=== PATIENT | female | born 1930 | race Caucasian/White ===

== ENCOUNTER 2016-06-08 16:11 | Observation (INO) | payer MEDICARE ==
[2016-06-08] MEDS ORDERED: SODIUM CHLORIDE 0.9% 1,000 ML IV STA (16:40)
--- NOTE | 2016-06-08 17:00 | ED ---
General Adult HPI - General Chief complaint: Altered Mental Status Stated complaint: Confusion/Weakness Time Seen by Provider: 06/08/16 16:40 Source: patient, RN notes reviewed, old records reviewed Mode of arrival: wheelchair Limitations: no limitations - History of Present Illness Initial comments: This is a 6-year-old female here for altered mental status. Patient brought in by family for evaluation of not acting appropriately. Patient's no significant medical changes no significant medication changes no other medical problems. Patient herself denies any complaints. Patient has history of COPD and diabetes , high cholesterol. Patient denies chest patient was of breath or headache. The patient's family brings patient in because she is asking about people who are no longer alive and doing some things that she doesn't normally do. - Related Data Home Medications Medication Instructions Recorded Confirmed LORazepam [Lorazepam] 0.5 mg PO BID PRN 01/01/16 06/08/16 Rosuvastatin [Crestor] 10 mg PO HS 01/01/16 06/08/16 glipiZIDE [Glipizide Xl] 2.5 mg PO DAILY 01/01/16 06/08/16 Venlafaxine HCl [Effexor XR] 225 mg PO DAILY 06/08/16 06/08/16 sitaGLIPtin [Januvia] 100 mg PO DAILY 06/08/16 06/08/16 Allergies Allergy/AdvReac Type Severity Reaction Status Date / Time No Known Allergies Allergy Verified 06/08/16 17:27 Review of Systems ROS Statement: Those systems with pertinent positive or pertinent negative responses have been documented in the HPI. ROS Other: All systems not noted in ROS Statement are negative. Past Medical History Past Medical History: COPD, Diabetes Mellitus, Hyperlipidemia History of Any Multi-Drug Resistant Organisms: None Reported Past Surgical History: Adenoidectomy, Tonsillectomy Past Psychological History: No Psychological Hx Reported Smoking Status: Current every day smoker Past Alcohol Use History: None Reported Past Drug Use History: None Reported General Exam Limitations: no limitations General appearance: alert, in no apparent distress Head exam: Present: atraumatic, normocephalic, normal inspection Eye exam: Present: normal appearance, PERRL, EOMI. Absent: scleral icterus, conjunctival injection, periorbital swelling ENT exam: Present: normal exam, mucous membranes moist Neck exam: Present: normal inspection. Absent: tenderness, meningismus, lymphadenopathy Respiratory exam: Present: normal lung sounds bilaterally. Absent: respiratory distress, wheezes, rales, rhonchi, stridor Cardiovascular Exam: Present: regular rate, normal rhythm, normal heart sounds. Absent: systolic murmur, diastolic murmur, rubs, gallop, clicks GI/Abdominal exam: Present: soft, normal bowel sounds. Absent: distended, tenderness, guarding, rebound, rigid Extremities exam: Present: normal inspection, full ROM, normal capillary refill. Absent: tenderness, pedal edema, joint swelling, calf tenderness Back exam: Present: normal inspection Neurological exam: Present: alert, oriented X3, CN II-XII intact Psychiatric exam: Present: normal affect, normal mood Skin exam: Present: warm, dry, intact, normal color. Absent: rash Course Vital Signs 06/08/16 06/08/16 16:42 18:48 Temperature 97.0 F L 99.0 F Pulse Rate 106 H 100 Respiratory 18 18 Rate Blood Pressure 152/82 178/79 O2 Sat by Pulse 98 100 Oximetry EKG Findings - EKG Comments: EKG Findings:: EKG shows sinus tachycardia rate of 106, LA 170, QRS 80, QTC 470 Medical Decision Making - Medical Decision Making 86-year-old female ER with altered mental status, no neurologic deficit, patient still saying inappropriate comments to family. Patient will be admitted for altered mental status and neurological evaluation - Lab Data Result diagrams: 06/08/16 16:50 06/08/16 16:50 Lab Results 06/08/16 06/08/16 06/08/16 Range/Units 16:50 16:50 16:50 WBC 7.7 (3.8-10.6) k/uL RBC 4.39 (3.80-5.40) m/uL Hgb 14.2 (11.4-16.0) gm/dL Hct 41.6 (34.0-46.0) % MCV 94.9 (80.0-100.0) fL MCH 32.3 (25.0-35.0) pg MCHC 34.0 (31.0-37.0) g/dL RDW 13.1 (11.5-15.5) % Plt Count 162 (150-450) k/uL Neutrophils % 86 % Lymphocytes % 9 % Monocytes % 3 % Eosinophils % 0 % Basophils % 0 % Neutrophils # 6.6 (1.3-7.7) k/uL Lymphocytes # 0.7 L (1.0-4.8) k/uL Monocytes # 0.3 (0-1.0) k/uL Eosinophils # 0.0 (0-0.7) k/uL Basophils # 0.0 (0-0.2) k/uL PT (9.0-12.0) sec INR (<1.1) APTT (22.0-30.0) sec Sodium 136 L (137-145) mmol/L Potassium 4.2 (3.5-5.1) mmol/L Chloride 101 (98-107) mmol/L Carbon Dioxide 23 (22-30) mmol/L Anion Gap 12 mmol/L BUN 19 H (7-17) mg/dL Creatinine 0.94 (0.52-1.04) mg/dL Est GFR (MDRD) Af Amer >60 (>60 ml/min/1.73 sqM) Est GFR (MDRD) Non-Af 56 (>60 ml/min/1.73 sqM) Glucose 236 H (74-99) mg/dL Calcium 9.0 (8.4-10.2) mg/dL Phosphorus 3.2 (2.5-4.5) mg/dL Magnesium 2.0 (1.6-2.3) mg/dL Total Bilirubin 0.7 (0.2-1.3) mg/dL AST 31 (14-36) U/L ALT 24 (9-52) U/L Alkaline Phosphatase 70 (38-126) U/L Total Creatine Kinase 76 (30-135) U/L CK-MB (CK-2) 1.3 (0.0-2.4) ng/mL CK-MB (CK-2) Rel Index 1.7 Troponin I <0.012 (0.000-0.034) ng/mL Total Protein 7.5 (6.3-8.2) g/dL Albumin 4.5 (3.5-5.0) g/dL Urine Color Urine Appearance (Clear) Urine pH (5.0-8.0) Ur Specific [place] (1.001-1.035) Urine Protein (Negative) Urine Glucose (UA) (Negative) Urine Ketones (Negative) Urine Blood (Negative) Urine Nitrite (Negative) Urine Bilirubin (Negative) Urine Urobilinogen (<2.0) mg/dL Ur Leukocyte Esterase (Negative) 06/08/16 06/08/16 Range/Units 16:50 17:35 WBC (3.8-10.6) k/uL RBC (3.80-5.40) m/uL Hgb (11.4-16.0) gm/dL Hct (34.0-46.0) % MCV (80.0-100.0) fL MCH (25.0-35.0) pg MCHC (31.0-37.0) g/dL RDW (11.5-15.5) % Plt Count (150-450) k/uL Neutrophils % % Lymphocytes % % Monocytes % % Eosinophils % % Basophils % % Neutrophils # (1.3-7.7) k/uL Lymphocytes # (1.0-4.8) k/uL Monocytes # (0-1.0) k/uL Eosinophils # (0-0.7) k/uL Basophils # (0-0.2) k/uL PT 11.2 (9.0-12.0) sec INR 1.1 (<1.1) APTT 23.7 (22.0-30.0) sec Sodium (137-145) mmol/L Potassium (3.5-5.1) mmol/L Chloride (98-107) mmol/L Carbon Dioxide (22-30) mmol/L Anion Gap mmol/L BUN (7-17) mg/dL Creatinine (0.52-1.04) mg/dL Est GFR (MDRD) Af Amer (>60 ml/min/1.73 sqM) Est GFR (MDRD) Non-Af (>60 ml/min/1.73 sqM) Glucose (74-99) mg/dL Calcium (8.4-10.2) mg/dL Phosphorus (2.5-4.5) mg/dL Magnesium (1.6-2.3) mg/dL Total Bilirubin (0.2-1.3) mg/dL AST (14-36) U/L ALT (9-52) U/L Alkaline Phosphatase (38-126) U/L Total Creatine Kinase (30-135) U/L CK-MB (CK-2) (0.0-2.4) ng/mL CK-MB (CK-2) Rel Index Troponin I (0.000-0.034) ng/mL Total Protein (6.3-8.2) g/dL Albumin (3.5-5.0) g/dL Urine Color Yellow Urine Appearance Clear (Clear) Urine pH 6.5 (5.0-8.0) Ur Specific [place] 1.017 (1.001-1.035) Urine Protein Negative (Negative) Urine Glucose (UA) Trace H (Negative) Urine Ketones Negative (Negative) Urine Blood Negative (Negative) Urine Nitrite Negative (Negative) Urine Bilirubin Negative (Negative) Urine Urobilinogen <2.0 (<2.0) mg/dL Ur Leukocyte Esterase Negative (Negative) Disposition Clinical Impression: Altered mental status, CVA (cerebral vascular accident) Disposition: [facility] Condition: Fair Referrals: Elena Pena MD [Primary Care Provider] - 1-2 days
[2016-06-08 17:04] LABS: Basophils % (A) 0 %; CH 32.6; CHCM 34.5; Eosinophils % (A) 0 %; HCT 41.6 % (34.0-46.0); HDW 2.73; HGB 14.2 gm/dL (11.4-16.0); Luc # (Auto) 0.13; Luc % (Auto) 2; Lymphocytes # (A) 0.7 k/uL (1.0-4.8); Lymphocytes % (A) 9 %; MCH 32.3 pg (25.0-35.0); MCV 94.9 fL (80.0-100.0); Mean Platelet Volume 8.2; Monocytes # (A) 0.3 k/uL (0-1.0); Monocytes % (A) 3 %; Neutrophils # (A) 6.6 k/uL (1.3-7.7); Neutrophils % (A) 86 %; RBC 4.39 m/uL (3.80-5.40); RDW 13.1 % (11.5-15.5); WBC 7.7 k/uL (3.8-10.6); WBC (Perox) 7.86
[2016-06-08 17:12] LABS: INR 1.1 (<1.1); Partial Thromboplastin Time 23.7 sec (22.0-30.0); Prothrombin Time 11.2 sec (9.0-12.0)
[2016-06-08 17:15] LABS: ALT 24 U/L (9-52); AST 31 U/L (14-36); Alkaline Phosphatase 70 U/L (38-126); Anion Gap 12 mmol/L; Blood Urea Nitrogen 19 mg/dL (7-17); Carbon Dioxide 23 mmol/L (22-30); Chloride 101 mmol/L (98-107); Glucose 236 mg/dL (74-99); Non-African American GFR(MDRD) 56 (>60 ml/min/1.73 sqM); Phosphorous 3.2 mg/dL (2.5-4.5); Potassium 4.2 mmol/L (3.5-5.1); Sodium 136 mmol/L (137-145); Total Bilirubin 0.7 mg/dL (0.2-1.3); Total Protein 7.5 g/dL (6.3-8.2)
[2016-06-08 17:23] LABS: Creatine Kinase 76 U/L (30-135)
[2016-06-08 17:36] LABS: Creatine Kinase MB 1.3 ng/mL (0.0-2.4); Troponin I <0.012 ng/mL (0.000-0.034)
[2016-06-08 17:46] LABS: Appearance,Urine Clear (Clear); Bilirubin,Urine Negative (Negative); Glucose,Urine (UA) Trace (Negative); Ketones,Urine Negative (Negative); Leukocyte Esterase,Urine Negative (Negative); Nitrite,Urine Negative (Negative); PH, Urine 6.5 (5.0-8.0); Protein,Urine Negative (Negative); Specific Gravity,Urine 1.017 (1.001-1.035); UA Billing (MACRO vs. MICRO) CHEM; Urobilinogen,Urine <2.0 mg/dL (<2.0)
--- NOTE | 2016-06-08 18:21 | CT ---
EXAMINATION TYPE: CT brain wo con DATE OF EXAM: 06/08/2016 6:16 PM COMPARISON: 01/01/2016 HISTORY: Pts family states of confusion today. CT DLP: 974.7 mGycm Automated exposure control for dose reduction was used. FINDINGS: There is cerebral cortical atrophy. There is no mass effect nor midline shift. There is no evidence o f intracranial hemorrhage. There is mild hypodensity around the frontal horns of the lateral ventricl es. Calvarium is intact. IMPRESSION: No acute intracranial abnormality. Cerebral atrophy and mild chronic small vessel ischemia.
[2016-06-08] MEDS ORDERED: ASPIRIN 325 MG TAB PO STA (18:48)
--- NOTE | 2016-06-08 19:13 | XR ---
EXAMINATION TYPE: XR chest 1V DATE OF EXAM: 06/08/2016 7:04 PM COMPARISON: 01/01/2016 HISTORY: Confusion COPD. TECHNIQUE: Single frontal view of the chest is obtained. FINDINGS: There is no heart failure nor confluent pneumonic infiltrate. Thoracic aorta is atheromato us. There are no hilar masses. Costophrenic angles are clear. There are chest leads. IMPRESSION: No active cardiopulmonary disease. No change.
[2016-06-08 19:53] LABS: Glucose,Whole Blood 194 mg/dL (75-99)
[2016-06-08] MEDS: SODIUM CHLORIDE 0.9% 1,000 ML IV SCH (20:47)
[2016-06-08] MEDS: ATORVASTATIN 20 MG TAB PO SCH (21:38)
[2016-06-08] MEDS: LORazepam 0.5 MG TAB PO PRN (21:38)
[2016-06-09] MEDS: SODIUM CHLORIDE 0.9% 1,000 ML IV SCH (04:53)
[2016-06-09 06:28] LABS: Glucose,Whole Blood 139 mg/dL (75-99)
[2016-06-09] MEDS: VENLAFAXINE HCL ER 75 MG CAP PO SCH (07:53)
[2016-06-09] MEDS: ASPIRIN 325 MG TAB PO SCH (07:54)
[2016-06-09] MEDS: LINAGLIPTIN 5 MG TABLET PO SCH (07:54)
[2016-06-09 11:33] LABS: Glucose,Whole Blood 111 mg/dL (75-99)
--- NOTE | 2016-06-09 12:20 | P.HPIM ---
History of Present Illness H&P Date: 06/09/16 Chief Complaint: Altered level of consciousness/TIA This is an 86-year-old female one of Dr. España with a previous medical history significant for diabetes mellitus type 2, hyperlipidemia, depressive disorder, anxiety disorder, chronic tobacco use and dependence, patient was brought into the emergency department at [facility] yesterday because of change in her mentation according to her family and not able to contract right as a matter fact she was looking for her at the home, patient was seen in the ER had a chest x-ray that was negative ended up going for a computed tomography scan of the brain that was negative for acute infarct or bleed, patient had the flu swab that was negative as well as her EKG showed sinus rhythm with PACs with the chronic ischemic changes in the anterolateral lead patient was admitted to hospital for evaluation she was given aspirin 325 mg orally once every day, and she was placed on a monitor neurology consultation was obtained ultrasound of the carotid as well as echo care gram was obtained also we obtain cardiology consultation for evaluation of possible CAD. Review of Systems Constitutional: Denies chills, Denies chronic headaches, Denies weakness, Denies weight gain, Denies weight loss Eyes: denies blurred vision Ears: deny: decreased hearing Ears, nose, mouth and throat: Denies dental pain, Denies dysphagia, Denies neck lump, Denies sore throat, Denies vertigo Cardiovascular: Reports decreased exercise tolerance, Reports dyspnea on exertion, Denies chest pain, Denies high blood pressure, Denies irregular heart beat, Denies phlebitis, Denies rapid heart beat, Denies shortness of breath, Denies syncope Respiratory: Denies congestion, Denies cough, Denies cough with sputum, Denies home oxygen, Denies sleep apnea, Denies snoring, Denies wheezing Gastrointestinal: Denies abdominal pain, Denies bloating, Denies BRBPR, Denies heartburn, Denies hematemesis, Denies melena, Denies nausea, Denies vomiting Genitourinary: Denies dysuria, Denies hematuria Menstruation: Reports postmenopausal Musculoskeletal: Denies frequent falls, Denies low back pain Musculoskeletal: absent: ankle pain, ankle stiffness, ankle swelling, elbow pain , elbow stiffness, elbow swelling, foot pain, foot stiffness, foot swelling, hand pain, hand stiffness, hand swelling, hip pain, hip stiffness, hip swelling , knee pain, knee stiffness, knee swelling, shoulder pain, shoulder stiffness, shoulder swelling, wrist pain, wrist stiffness, wrist swelling Integumentary: Denies pruritus, Denies rash Neurological: Reports memory loss, Denies gait dysfunction, Denies head injury, Denies headaches, Denies hearing difficulties, Denies numbness, Denies paralysis , Denies paresthesias, Denies spasticity, Denies syncope, Denies tingling, Denies tremors, Denies vertigo, Denies weakness Psychiatric: Reports anxiety, Reports depression, Reports memory loss, Denies sleep disturbances, Denies suicidal ideation Endocrine: Denies fatigue, Denies weight change Past Medical History Past Medical History: COPD, Diabetes Mellitus, Hyperlipidemia, Osteoarthritis ( OA), Pneumonia Additional Past Medical History / Comment(s): OCC STRESS INCONT OF URINE, " HEART BURN" History of Any Multi-Drug Resistant Organisms: None Reported Past Surgical History: Adenoidectomy, Joint Replacement (Right total knee arthroplasty), Tonsillectomy Additional Past Surgical History / Comment(s): RT KNEE REPLACMENT Past Anesthesia/Blood Transfusion Reactions: No Reported Reaction Past Psychological History: No Psychological Hx Reported Additional Psychological History / Comment(s): PT IS A . SON NICOLAS LIVES WITH PT IN A RANCH STYLE HOME-HAS A RAMP(THAT [employer] USED). PT NEVER DROVE- FAMILY TAKES HER PLACES. USES A WALKER WHEN NEEDED. ALSO HAS A SHOWER CHAIR. Smoking Status: Current every day smoker Past Alcohol Use History: Occasional Additional Past Alcohol Use History / Comment(s): STARTED SMOKING AT AGE 16 SMOKES 1/2 PPD. Past Drug Use History: None Reported - Past Family History Mother Family Medical History: Coronary Artery Disease (CAD), Diabetes Mellitus ( Mother at age of 88 from diabetes and CAD.) Additional Family Medical History / Comment(s): PT'S MOM AND 2 AUNTS LIVED TO BE 96 Father Family Medical History: Unable to Obtain (Father at age of) Brother(s) Family Medical History: No Reported History (Patient has 4 brothers no major medical problems) Sister(s) Family Medical History: No Reported History (Patient has 2 sisters no major medical problems) Son(s) Family Medical History: No Reported History (Patient has 3 sons no major medical problems) Medications and Allergies Home Medications Medication Instructions Recorded Confirmed Type LORazepam [Lorazepam] 0.5 mg PO BID PRN 01/01/16 06/08/16 History Rosuvastatin [Crestor] 10 mg PO HS 01/01/16 06/08/16 History glipiZIDE [Glipizide Xl] 2.5 mg PO DAILY 01/01/16 06/08/16 History Venlafaxine HCl [Effexor XR] 225 mg PO DAILY 06/08/16 06/08/16 History sitaGLIPtin [Januvia] 100 mg PO DAILY 06/08/16 06/08/16 History Allergies Allergy/AdvReac Type Severity Reaction Status Date / Time No Known Allergies Allergy Verified 06/08/16 17:27 Physical Exam Vitals: Vital Signs Temp Pulse Pulse Pulse Resp BP BP 06/09/16 08:00 97.0 F L 75 16 123/85 06/09/16 07:01 66 122/58 06/09/16 05:01 66 18 127/58 06/09/16 04:00 69 18 06/09/16 03:01 98.3 F 69 18 121/76 06/09/16 01:01 89 129/66 06/09/16 00:00 80 18 06/08/16 23:01 99.1 F 112 H 18 194/85 06/08/16 21:17 102 H 18 06/08/16 21:01 112 H 18 194/85 06/08/16 20:00 98.6 F 102 H 18 168/74 06/08/16 19:41 69 16 151/84 Pulse Ox 06/09/16 08:00 98 06/09/16 07:01 99 06/09/16 05:01 97 06/09/16 04:00 06/09/16 03:01 95 06/09/16 01:01 06/09/16 00:00 06/08/16 23:01 95 06/08/16 21:17 06/08/16 21:01 95 06/08/16 20:00 100 06/08/16 19:41 98 Intake and Output 06/08/16 06/09/16 06/09/16 22:59 06:59 14:59 Intake Total 1000 Balance 1000 Intake: IV 1000 Sodium Chloride 0.9% 1, 1000 000 ml @ 100 mls/hr IV . Q10H HEMALATHA Rx#:[id number] Other: # Voids 1 1 Weight 64.6 kg - Constitutional General appearance: average body habitus, no acute distress - EENT Eyes: anicteric sclerae, EOMI, PERRLA, no ptosis, no scleral icterus, normal appearance ENT: NA/AT, normal oropharynx, no thrush Ears: bilateral: normal - Neck Neck: no lymphadenopathy, normal ROM, no rigidity, no stridor, no thyromegaly Carotids: bilateral: upstroke delayed Thyroid: bilateral: normal size - Respiratory Respiratory: bilateral: diminished, negative: dullness, rales, rhonchi, wheezing , prolonged expiration, prolonged inspiration - Cardiovascular Rhythm: regular Heart sounds: normal: S1, S2 Abnormal Heart Sounds: systolic murmur - Gastrointestinal General gastrointestinal: normal bowel sounds, soft, no splenomegaly, no tenderness, no umbilical hernia, no ventral hernia - Integumentary Integumentary: normal, normal turgor - Neurologic Neurologic: CNII-XII intact - Musculoskeletal Musculoskeletal: gait normal, strength equal bilaterally - Psychiatric Psychiatric: A&O x's 3, no appropriate affect, intact judgment & insight Results CBC & Chem 7: 06/10/16 05:56 06/10/16 05:56 Labs: Abnormal Lab Results - Last 24 Hours (Table) 06/08/16 06/09/16 Range/Units 19:51 06:27 POC Glucose (mg/dL) 194 H 139 H (75-99) mg/dL Thrombosis Risk Factor Assmnt - DVT/VTE Prophylaxis DVT/VTE Prophylaxis: Pharmacologic Prophylaxis ordered, Mechanical Prophylaxis ordered Assessment and Plan Plan: Assessment and plan: 1. Altered mental status possibly due to worsening vascular dementia, doubt CVA at this point, her neurologic exam is completely normal, however because of her risk factors she will be admitted to the telemetry unit, she will be placed on aspirin 325 mg orally once every day, neuro check every 2 hours for the next 24 hours, ultrasound of the carotids, echocardiogram, neurology consultation. Patient may need to go for MRI for evaluation of her memory as well with and without gadolinium. 2. Possible CAD. We will obtain echocardiogram at this time we will obtain cardiology consultation especially with her EKG changes. 3. Diabetes mellitus type 2. Continue glipizide 2.5 mg orally once every day as well as Januvia 100 mg orally once every day, continue blood glucose monitoring once every day. 4. Hyperlipidemia. Continue Crestor 5 mg orally once every day. 5. Anxiety disorder. Continue Ativan 1 mg orally twice every day. 6. Depressive disorder. Continue Effexor X are 225 mg orally once every day. 7. DVT prophylaxis. Heparin 5000 units subcutaneously every 12 hours. 8. Await results of MRI.
--- NOTE | 2016-06-09 12:36 | US ---
EXAMINATION TYPE: US carotid duplex BILAT DATE OF EXAM: 06/09/2016 12:23 PM COMPARISON: 08/14/2011 CLINICAL HISTORY: TIA. Altered mental status, memory loss EXAM MEASUREMENTS: RIGHT: Peak Systolic Velocity (PSV) cm/sec ----- Right CCA: 65.8 ----- Right ICA: 88.9 ----- Right ECA: 197.3 ICA/CCA ratio: 1.4 RIGHT: End Diastole cm/sec ----- Right CCA: 12.0 ----- Right ICA: 13.1 ----- Right ECA: 0.0 LEFT: Peak Systolic Velocity (PSV) cm/sec ----- Left CCA: 84.5 ----- Left ICA: 101.7 ----- Left ECA: 116.1 ICA/CCA ratio: 1.2 LEFT: End Diastole cm/sec ----- Left CCA: 13.1 ----- Left ICA: 23.7 ----- Left ECA: 11.1 VERTEBRALS (direction of flow): Right Vertebral: Antegrade Left Vertebral: Antegrade Mild plaque visualized bilateral bifurcations. Increased velocities right ECA IMPRESSION: There is antegrade flow in the vertebral arteries. The images and measurements suggest c lose to 50% stenosis in both internal carotid arteries. 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 Velocities are increased slightly compared to old exam. This is suggestive of incr eased plaque compared to last exam. Criteria for Assigning % of Stenosis / Diameter reduction (Estimation based on the indirect measurements of the internal carotid artery velocities (ICA PSV). 1. Normal (no stenosis)=ICA PSV < 125 cm/s: ratio < 2.0: ICA EDV<40 cm/s. 2. Less than 50% stenosis=ICA PSV < 125 cm/s: ratio < 2.0: ICA EDV<40 cm/s. 3. 50 to 69% stenosis=ICA PSV of 125 to 230 cm/s: ration 2.0 ? 4.0: ICA EDV 40-100 cm/s. 4. Greater than 70% stenosis to near occlusion= ICA PSV > 230 cm/s: ratio > 4.0: ICA EDV > 100 cm/s. 5. Near occlusion= ICA PSV velocities may be low or undetectable: variable ratio and ICA EDV. 6. Total occlusion=unable to detect flow.
--- NOTE | 2016-06-09 12:54 | P.CRDCN ---
History of Present Illness Consult date: 06/09/16 Reason for Consult (text): Abnormal ECG Chief complaint: confusion History of present illness: This is a pleasant 86-year-old female patient with a history of diabetes, COPD, current smoker, and hyperlipidemia. She is brought to the emergency department by her children who noticed some change in mental status. She was asking about her and brothers and sisters who have been for many years. Computed tomography scan of the brain showed no acute intracranial abnormalities , cerebral atrophy and mild small vessel ischemia. Chest x-ray was negative, one troponin less than 0.012. EKG showed sinus tachycardia and likely LVH with left ventricular strain pattern. Upon examination, patient remained slightly confused. She is able to state that she is in [facility] in the year is 2016 after much delay. He does know it's the month of May. Says she knows who the president is but unable to state his name. She denies any complaints of numbness, tingling, dizziness, chest discomfort, palpitations, edema or syncope. She does complain of shortness of breath "when I'm smoking". Past Medical History Past Medical History: COPD, Diabetes Mellitus, Hyperlipidemia, Osteoarthritis ( OA), Pneumonia Additional Past Medical History / Comment(s): OCC STRESS INCONT OF URINE, " HEART BURN" History of Any Multi-Drug Resistant Organisms: None Reported Past Surgical History: Adenoidectomy, Joint Replacement (Right total knee arthroplasty), Tonsillectomy Additional Past Surgical History / Comment(s): RT KNEE REPLACMENT Past Anesthesia/Blood Transfusion Reactions: No Reported Reaction Past Psychological History: No Psychological Hx Reported Additional Psychological History / Comment(s): PT IS A . SON NICOLAS LIVES WITH PT IN A RANCH STYLE HOME-HAS A RAMP(THAT [employer] USED). PT NEVER DROVE- FAMILY TAKES HER PLACES. USES A WALKER WHEN NEEDED. ALSO HAS A SHOWER CHAIR. Smoking Status: Current every day smoker Past Alcohol Use History: Occasional Additional Past Alcohol Use History / Comment(s): STARTED SMOKING AT AGE 16 SMOKES 1/2 PPD. Past Drug Use History: None Reported - Past Family History Mother Family Medical History: Coronary Artery Disease (CAD), Diabetes Mellitus ( Mother at age of 88 from diabetes and CAD.) Additional Family Medical History / Comment(s): PT'S MOM AND 2 AUNTS LIVED TO BE 96 Father Family Medical History: Unable to Obtain (Father at age of) Additional Family Medical History / Comment(s): LIVED TO BE IN HIS 90'S Brother(s) Family Medical History: No Reported History (Patient has 4 brothers no major medical problems) Sister(s) Family Medical History: No Reported History (Patient has 2 sisters no major medical problems) Son(s) Family Medical History: No Reported History (Patient has 3 sons no major medical problems) Medications and Allergies Home Medications Medication Instructions Recorded Confirmed Type LORazepam [Lorazepam] 0.5 mg PO BID PRN 01/01/16 06/08/16 History Rosuvastatin [Crestor] 10 mg PO HS 01/01/16 06/08/16 History glipiZIDE [Glipizide Xl] 2.5 mg PO DAILY 01/01/16 06/08/16 History Venlafaxine HCl [Effexor XR] 225 mg PO DAILY 06/08/16 06/08/16 History sitaGLIPtin [Januvia] 100 mg PO DAILY 06/08/16 06/08/16 History Allergies Allergy/AdvReac Type Severity Reaction Status Date / Time No Known Allergies Allergy Verified 06/08/16 17:27 Physical Exam Vitals: Vital Signs Temp Pulse Pulse Pulse Resp BP BP 06/09/16 11:34 82 89 18 06/09/16 11:33 97.3 F L 82 18 131/61 06/09/16 08:00 97.0 F L 75 16 123/85 06/09/16 07:01 66 122/58 06/09/16 05:01 66 18 127/58 06/09/16 04:00 69 18 06/09/16 03:01 98.3 F 69 18 121/76 06/09/16 01:01 89 129/66 06/09/16 00:00 80 18 06/08/16 23:01 99.1 F 112 H 18 194/85 06/08/16 21:17 102 H 18 06/08/16 21:01 112 H 18 194/85 06/08/16 20:00 98.6 F 102 H 18 168/74 06/08/16 19:41 69 16 151/84 Pulse Ox 06/09/16 11:34 06/09/16 11:33 98 06/09/16 08:00 98 06/09/16 07:01 99 06/09/16 05:01 97 06/09/16 04:00 06/09/16 03:01 95 06/09/16 01:01 06/09/16 00:00 06/08/16 23:01 95 06/08/16 21:17 06/08/16 21:01 95 06/08/16 20:00 100 06/08/16 19:41 98 Intake and Output 06/08/16 06/09/16 06/09/16 22:59 06:59 14:59 Intake Total 1000 1360 Balance 1000 1360 Intake: IV 1000 1200 Sodium Chloride 0.9% 1, 1000 1200 000 ml @ 100 mls/hr IV . Q10H HEMALATHA Rx#:[id number] Oral 160 Other: # Voids 1 1 Weight 64.6 kg PHYSICAL EXAMINATION: HEENT: Head is atraumatic, normocephalic. Pupils equal, round. Neck is supple. There is no elevated jugular venous pressure. HEART EXAMINATION: Heart sounds regular, S1 and S2 grade 3/6 midsystolic murmur. CHEST EXAMINATION: Lungs are clear to auscultation and precussion. No chest wall tenderness is noted on palpation or with deep breathing. ABDOMEN: Soft, nontender. Bowel sounds are heard. No organomegaly noted. EXTREMITIES: 2+ peripheral pulses with no evidence of peripheral edema and no calf tenderness noted. NEUROLOGIC patient is awake, alert and oriented 3 with delay, mild confusion noted. . Results 06/08/16 16:50 06/08/16 16:50 Current Medications Generic Name Dose Route Start Last Admin Trade Name Lamonte PRN Reason Stop Dose Admin Aspirin 325 mg 06/09/16 09:00 06/09/16 07:54 Aspirin PO 325 mg DAILY HEMALATHA Administration Atorvastatin Calcium 20 mg 06/08/16 21:00 06/08/16 21:38 Lipitor PO 20 mg HS HEMALATHA Administration Glipizide 2.5 mg 06/09/16 09:00 06/09/16 07:53 Glucotrol PO 2.5 mg DAILY HEMALATHA Administration Heparin Sodium (Porcine) 5,000 unit 06/09/16 21:00 Heparin SQ Q12HR HEMALATHA Linagliptin 5 mg 06/09/16 09:00 06/09/16 07:54 Tradjenta PO 5 mg DAILY HEMALATHA Administration Lorazepam 0.5 mg 06/08/16 21:00 06/08/16 21:38 Ativan PO 0.5 mg BID PRN Administration Anxiety Venlafaxine HCl 225 mg 06/09/16 09:00 06/09/16 07:53 Effexor Xr PO 225 mg DAILY HEMALATHA Administration Intake and Output 06/08/16 06/09/16 06/09/16 22:59 06:59 14:59 Intake Total 1000 1360 Balance 1000 1360 Intake: IV 1000 1200 Sodium Chloride 0.9% 1, 1000 1200 000 ml @ 100 mls/hr IV . Q10H HEMALATHA Rx#:[id number] Oral 160 Other: # Voids 1 1 Weight 64.6 kg Assessment and Plan Plan: Assessment and plan #1 altered mental status, secondary to worsening vascular dementia versus CVA, awaiting further evaluation by neurology #2 diabetes #3 hyperlipidemia #4 midsystolic murmur From cardiology's perspective, we will review 2-D echo to rule out hypertrophic cardiomyopathy versus mitral regurgitation. We will obtain another EKG and troponin. Further recommendations to follow. HOME HEALTH CLINICAL SUPERVISOR note has been reviewed, I agree with a documented findings and plan of care. Patient was seen and examined.
--- NOTE | 2016-06-09 15:40 | ECHOF ---
Referral Reason:TIA/possible CAD MEASUREMENTS -------- HEIGHT: 157.5 cm WEIGHT: 64.4 kg BP: 123/85 IVSd: 0.9 cm (0.6 - 1.1) LVIDd: 4.4 cm (3.9 - 5.3) LVPWd: 0.9 cm (0.6 - 1.1) LVIDs: 3.1 cm LA Diam: 3.7 cm (2.7 - 3.8) RVIDd: 2.9 cm (< 3.3) LAESV Index (A-L): 30.08 ml/m Ao Diam: 3.0 cm (2.0 - 3.7) AV Cusp: 1.9 cm (1.5 - 2.6) EPSS: 0.7 cm MV E Ben: 1.03 m/s MV DecT: 181 ms MV A Ben: 1.29 m/s MV E/A Ratio: 0.80 MV EF SLOPE: 88.73 mm/s (70 - 150) MV EXCURSION: 13.34 mm (> 18.000) FINDINGS -------- Sinus rhythm. This was a technically good study. The left ventricular size is normal. Left ventricular wall thickness is normal. Overall left ventricular systolic function is normal with, an EF between 55 - 60 %. The right ventricle is normal in size and function. LA is midly dilated 29-33ml/m2. The right atrium is normal in size. There is mild aortic valve sclerosis. Moderate mitral annular calcification present. [id number] mitral regurgitation is present. The tricuspid valve appears structurally normal. Trace/mild (physiologic) pulmonic regurgitation. The aortic root size is normal. Normal inferior vena cava with normal inspiratory collapse consistent with estimated right atrial pressure of 5 mmHg. There is no pericardial effusion. CONCLUSIONS -------- 1. Sinus rhythm. 2. Moderate mitral annular calcification present. 3. [id number] mitral regurgitation is present. 4. The tricuspid valve appears structurally normal. 5. Trace/mild (physiologic) pulmonic regurgitation. 6. The aortic root size is normal. 7. Normal inferior vena cava with normal inspiratory collapse consistent with estimated right atrial pressure of 5 mmHg. 8. There is no pericardial effusion. 9. This was a technically good study. 10. The left ventricular size is normal. 11. Left ventricular wall thickness is normal. 12. Overall left ventricular systolic function is normal with, an EF between 55 - 60 %. 13. The right ventricle is normal in size and function. 14. LA is midly dilated 29-33ml/m2. 15. The right atrium is normal in size. 16. There is mild aortic valve sclerosis. SEARCH SPECIALIST: Bette Humphreys RDCS
--- NOTE | 2016-06-09 15:53 | P.CONS ---
History of Present Illness - Reason for Consult Consult date: 06/09/16 - Chief Complaint Confusion - History of Present Illness This is an 86-year-old female being evaluated by the neurology service for complaints of confusion. Her grandson who is a frequent visitor with the patient complains that during his last visit, she was confused and asking questions about her and other relatives. He denies any pain or recent illness. She does now realizes that she had been acting somewhat confused. There was no loss of consciousness. There've been no lateralizing symptoms. There are no visual symptoms and she has no trouble swallowing or speaking. She had a negative chest x-ray and her CT of the brain showed no acute intracranial abnormalities. It did show some atrophy with small vessel ischemic changes. Her carotid Doppler showed 50% bilateral internal carotid artery stenosis, as well as 50-70% right external carotid artery stenosis. At the time of my exam she is resting comfortably in bed eating lunch. Cardiology has evaluated and continues their workup. Review of Systems All systems: negative Constitutional: Reports as per HPI Past Medical History Past Medical History: COPD, Diabetes Mellitus, Hyperlipidemia, Osteoarthritis ( OA), Pneumonia Additional Past Medical History / Comment(s): OCC STRESS INCONT OF URINE, " HEART BURN" History of Any Multi-Drug Resistant Organisms: None Reported Past Surgical History: Adenoidectomy, Joint Replacement (Right total knee arthroplasty), Tonsillectomy Additional Past Surgical History / Comment(s): RT KNEE REPLACMENT Past Anesthesia/Blood Transfusion Reactions: No Reported Reaction Past Psychological History: No Psychological Hx Reported Additional Psychological History / Comment(s): PT IS A . SON NICOLAS LIVES WITH PT IN A RANCH STYLE HOME-HAS A RAMP(THAT [employer] USED). PT NEVER DROVE- FAMILY TAKES HER PLACES. USES A WALKER WHEN NEEDED. ALSO HAS A SHOWER CHAIR. Smoking Status: Current every day smoker Past Alcohol Use History: Occasional Additional Past Alcohol Use History / Comment(s): STARTED SMOKING AT AGE 16 SMOKES 1/2 PPD. Past Drug Use History: None Reported - Past Family History Mother Family Medical History: Coronary Artery Disease (CAD), Diabetes Mellitus ( Mother at age of 88 from diabetes and CAD.) Additional Family Medical History / Comment(s): PT'S MOM AND 2 AUNTS LIVED TO BE 96 Father Family Medical History: Unable to Obtain (Father at age of) Additional Family Medical History / Comment(s): LIVED TO BE IN HIS 90'S Brother(s) Family Medical History: No Reported History (Patient has 4 brothers no major medical problems) Sister(s) Family Medical History: No Reported History (Patient has 2 sisters no major medical problems) Son(s) Family Medical History: No Reported History (Patient has 3 sons no major medical problems) Medications and Allergies Home Medications Medication Instructions Recorded Confirmed Type LORazepam [Lorazepam] 0.5 mg PO BID PRN 01/01/16 06/08/16 History Rosuvastatin [Crestor] 10 mg PO HS 01/01/16 06/08/16 History glipiZIDE [Glipizide Xl] 2.5 mg PO DAILY 01/01/16 06/08/16 History Venlafaxine HCl [Effexor XR] 225 mg PO DAILY 06/08/16 06/08/16 History sitaGLIPtin [Januvia] 100 mg PO DAILY 06/08/16 06/08/16 History Allergies Allergy/AdvReac Type Severity Reaction Status Date / Time No Known Allergies Allergy Verified 06/08/16 17:27 Physical Exam Vitals: Vital Signs Temp Pulse Pulse Pulse Resp BP BP 06/09/16 15:22 97.0 F L 79 18 168/71 06/09/16 15:19 82 18 06/09/16 11:34 82 89 18 06/09/16 11:33 97.3 F L 82 18 131/61 06/09/16 08:00 97.0 F L 75 16 123/85 06/09/16 07:01 66 122/58 06/09/16 05:01 66 18 127/58 06/09/16 04:00 69 18 06/09/16 03:01 98.3 F 69 18 121/76 06/09/16 01:01 89 129/66 06/09/16 00:00 80 18 06/08/16 23:01 99.1 F 112 H 18 194/85 06/08/16 21:17 102 H 18 06/08/16 21:01 112 H 18 194/85 06/08/16 20:00 98.6 F 102 H 18 168/74 06/08/16 19:41 69 16 151/84 Pulse Ox 06/09/16 15:22 95 03/25/17 15:19 06/09/16 11:34 06/09/16 11:33 98 06/09/16 08:00 98 06/09/16 07:01 99 06/09/16 05:01 97 06/09/16 04:00 06/09/16 03:01 95 06/09/16 01:01 06/09/16 00:00 06/08/16 23:01 95 06/08/16 21:17 06/08/16 21:01 95 06/08/16 20:00 100 06/08/16 19:41 98 Intake and Output 06/09/16 06/09/16 06/09/16 06:59 14:59 22:59 Intake Total 1000 1520 Balance 1000 1520 Intake: IV 1000 1200 Sodium Chloride 0.9% 1, 1000 1200 000 ml @ 100 mls/hr IV . Q10H HEMALATHA Rx#:[id number] Oral 320 Other: # Voids 1 Weight 64.6 kg - Constitutional General appearance: average body habitus, cooperative, no acute distress - EENT Eyes: no abnormal pupil, EOMI, PERRLA, no ptosis ENT: hearing grossly normal - Neck Neck: normal ROM, no rigidity - Respiratory Respiratory: negative: prolonged expiration, prolonged inspiration - Cardiovascular Rhythm: regular - Gastrointestinal General gastrointestinal: no distended, no tenderness - Neurologic She is alert awake and oriented 3. Speech and language are normal. There is no lateralizing weakness. No seizures or tremors are seen. There is no facial asymmetry. Naming is intact. There is no pronator drift. There is no dysmetria. Visual jauregui are intact. Cranial nerves II through XII are intact globally. Results CBC & Chem 7: 06/08/16 16:50 06/08/16 16:50 Labs: Abnormal Lab Results - Last 24 Hours (Table) 06/08/16 06/09/16 06/09/16 Range/Units 19:51 06:27 11:32 POC Glucose (mg/dL) 194 H 139 H 111 H (75-99) mg/dL Assessment and Plan (1) Hypertension Status: Chronic (2) Type 2 diabetes mellitus Status: Chronic (3) Hyperlipidemia Status: Chronic (4) Tobacco use Status: Chronic (5) Altered mental status Status: Acute Plan: Given her acute nature of cognitive symptoms, we must rule out a cerebrovascular etiology. There is no obvious reason for an encephalopathic process. I'll order an MRI of the brain, EEG, fasting lipid panel, and serum homocysteine level. Continue neurological checks. Continue cardiology evaluation and workup. Continue current medications. We will continue to follow and make recommendations based on the above studies. X I have reviewed the history and physical on the above patient. I have reviewed the above note, and agree.
[2016-06-09 16:29] LABS: Glucose,Whole Blood 139 mg/dL (75-99)
[2016-06-09] MEDS: LORazepam 0.5 MG TAB PO PRN (20:16)
[2016-06-09] MEDS: ATORVASTATIN 20 MG TAB PO SCH (20:16)
[2016-06-09] MEDS: HEPARIN SODIUM,PORCINE 5,000 UNIT/ML 1 ML VIAL SQ SCH (20:16)
[2016-06-09 20:58] LABS: Glucose,Whole Blood 187 mg/dL (75-99)
[2016-06-10 06:11] LABS: Glucose,Whole Blood 112 mg/dL (75-99)
[2016-06-10 06:29] LABS: CH 32.4; HCT 38.8 % (34.0-46.0); HDW 2.69; HGB 13.2 gm/dL (11.4-16.0); MCH 32.6 pg (25.0-35.0); MCV 95.8 fL (80.0-100.0); RBC 4.05 m/uL (3.80-5.40); WBC 7.1 k/uL (3.8-10.6)
[2016-06-10 06:54] LABS: Anion Gap 9 mmol/L; Blood Urea Nitrogen 16 mg/dL (7-17); Calcium 8.9 mg/dL (8.4-10.2); Carbon Dioxide 27 mmol/L (22-30); Chloride 108 mmol/L (98-107); Cholesterol 150 mg/dL (<200); Glucose 108 mg/dL (74-99); HDL Cholesterol 48 mg/dL (40-60); Non-African American GFR(MDRD) 52 (>60 ml/min/1.73 sqM); Potassium 4.2 mmol/L (3.5-5.1); Sodium 144 mmol/L (137-145); Triglycerides 146 mg/dL (<150)
[2016-06-10] MEDS: VENLAFAXINE HCL ER 75 MG CAP PO SCH (08:00)
[2016-06-10] MEDS: LINAGLIPTIN 5 MG TABLET PO SCH (08:00)
[2016-06-10] MEDS: HEPARIN SODIUM,PORCINE 5,000 UNIT/ML 1 ML VIAL SQ SCH ×2 (08:00→21:15)
[2016-06-10] MEDS: ASPIRIN 325 MG TAB PO SCH (08:00)
[2016-06-10 11:49] LABS: Glucose,Whole Blood 93 mg/dL (75-99)
--- NOTE | 2016-06-10 12:49 | P.PN ---
Subjective Principal diagnosis: Altered mental status This 86-year-old pleasant female continues to be evaluated by the neurology service. She was brought in for an episode of confusion. The family are here at the time of my exam but she seems to be back to baseline. No new complaints since her admission. Call that her CT of the brain showed no acute intracranial abnormalities. Was some atrophy and small vessel ischemia. Her carotid Doppler showed 50% bilateral internal carotid artery stenosis and 5070% right external carotid stenosis. He is resting comfortably in bed. Objective - Vital Signs Vital signs: Vital Signs Temp 97.0 F L 06/10/16 11:18 Pulse 78 06/10/16 11:19 Resp 16 06/10/16 11:19 BP 145/69 06/10/16 11:18 Pulse Ox 99 06/10/16 11:18 Intake & Output 06/09/16 06/10/16 06/10/16 18:59 06:59 18:59 Intake Total 1700 350 240 Balance 1700 350 240 Weight 63.5 kg Intake: IV 1200 Sodium Chloride 0.9% 1, 1200 000 ml @ 100 mls/hr IV . Q10H HEMALATHA Rx#:[id number] Oral 500 350 240 Other: # Voids 1 0 - Constitutional General appearance: Present: average body habitus, cooperative, no acute distress - EENT Eyes: Present: EOMI, PERRLA. Absent: abnormal pupil, ptosis ENT: Present: hearing grossly normal - Neck Neck: Present: normal ROM. Absent: rigidity - Respiratory Respiratory: negative: prolonged expiration, prolonged inspiration - Cardiovascular Rhythm: regular - Gastrointestinal General gastrointestinal: Absent: distended, tenderness - Neurologic Neurologic Comment(s): Is alert awake and oriented 3. Speech-language are normal. There is no lateralizing weakness. There is no facial asymmetry. No seizures or tremors are seen. Cranial nerves II through XII are intact globally. - Labs CBC & Chem 7: 06/10/16 05:56 06/10/16 05:56 Labs: Abnormal Lab Results - Last 24 Hours (Table) 06/09/16 06/09/16 06/10/16 Range/Units 16:27 20:57 05:56 Chloride 108 H (98-107) mmol/L Glucose 108 H (74-99) mg/dL POC Glucose (mg/dL) 139 H 187 H (75-99) mg/dL 06/10/16 Range/Units 06:10 Chloride (98-107) mmol/L Glucose (74-99) mg/dL POC Glucose (mg/dL) 112 H (75-99) mg/dL Assessment and Plan (1) Hypertension Status: Chronic (2) Type 2 diabetes mellitus Status: Chronic (3) Hyperlipidemia Status: Chronic (4) Tobacco use Status: Chronic (5) Altered mental status Status: Acute Plan: Given her acute nature of cognitive symptoms, we must rule out a cerebrovascular etiology. There is no obvious reason for an encephalopathic process. I have ordered an MRI of the brain, EEG, fasting lipid panel, and serum homocysteine level. Continue neurological checks. Continue cardiology evaluation and workup. Continue current medications, including aspirin 325 mg daily and Lipitor. We will continue to follow and make recommendations based on the above studies. She is being evaluated by cardiology, who can address her carotid stenosis. I have reviewed the history and physical on the above patient. I have reviewed the above note, and agree.
--- NOTE | 2016-06-10 15:06 | P.PN ---
Subjective History of present illness: This is a pleasant 86-year-old female patient with a history of diabetes, COPD, current smoker, and hyperlipidemia. She is brought to the emergency department by her children who noticed some change in mental status. She was asking about her and brothers and sisters who have been for many years. Computed tomography scan of the brain showed no acute intracranial abnormalities , cerebral atrophy and mild small vessel ischemia. Chest x-ray was negative, one troponin less than 0.012. EKG showed sinus tachycardia and likely LVH with left ventricular strain pattern. Subsequent troponins have also been negative. Echocardiogram with Doppler remains pending. Objective - Vital Signs Vital signs: Vital Signs Temp 97.0 F L 06/10/16 11:18 Pulse 78 06/10/16 11:19 Resp 16 06/10/16 11:19 BP 145/69 06/10/16 11:18 Pulse Ox 99 06/10/16 11:18 Intake & Output 06/09/16 06/10/16 06/10/16 18:59 06:59 18:59 Intake Total 1700 350 900 Balance 1700 350 900 Weight 63.5 kg Intake: IV 1200 Sodium Chloride 0.9% 1, 1200 000 ml @ 100 mls/hr IV . Q10H HEMALATHA Rx#:[id number] Oral 500 350 900 Other: # Voids 1 2 - Exam PHYSICAL EXAMINATION: HEENT: Head is atraumatic, normocephalic. Pupils equal, round. Neck is supple. There is no elevated jugular venous pressure. HEART EXAMINATION: Heart sounds regular, S1 and S2 grade 3/6 midsystolic murmur. CHEST EXAMINATION: Lungs are clear to auscultation and precussion. No chest wall tenderness is noted on palpation or with deep breathing. ABDOMEN: Soft, nontender. Bowel sounds are heard. No organomegaly noted. EXTREMITIES: 2+ peripheral pulses with no evidence of peripheral edema and no calf tenderness noted. NEUROLOGIC patient is awake, alert and oriented 3 with delay, mild confusion noted. - Labs CBC & Chem 7: 06/10/16 05:56 06/10/16 05:56 Labs: Abnormal Lab Results - Last 24 Hours (Table) 06/09/16 06/09/16 06/10/16 Range/Units 16:27 20:57 05:56 Chloride 108 H (98-107) mmol/L Glucose 108 H (74-99) mg/dL POC Glucose (mg/dL) 139 H 187 H (75-99) mg/dL 06/10/16 Range/Units 06:10 Chloride (98-107) mmol/L Glucose (74-99) mg/dL POC Glucose (mg/dL) 112 H (75-99) mg/dL Assessment and Plan Plan: Assessment and Plan Plan: Assessment and plan #1 altered mental status, secondary to worsening vascular dementia versus CVA, awaiting further evaluation by neurology #2 diabetes #3 hyperlipidemia #4 midsystolic murmur From cardiology's perspective, we will review 2-D echo to rule out hypertrophic cardiomyopathy versus mitral regurgitation. Continue current medications. DNP note has been reviewed, I agree with a documented findings and plan of care. Patient was seen and examined.
[2016-06-10] MEDS: LORazepam 0.5 MG TAB PO PRN (15:43)
[2016-06-10 16:50] LABS: Glucose,Whole Blood 98 mg/dL (75-99)
[2016-06-10 21:07] LABS: Glucose,Whole Blood 157 mg/dL (75-99)
[2016-06-10] MEDS: ATORVASTATIN 20 MG TAB PO SCH (21:15)
[2016-06-11 05:53] LABS: Glucose,Whole Blood 142 mg/dL (75-99)
[2016-06-11] MEDS: VENLAFAXINE HCL ER 75 MG CAP PO SCH (08:05)
[2016-06-11] MEDS: ASPIRIN 325 MG TAB PO SCH (08:05)
[2016-06-11] MEDS: LINAGLIPTIN 5 MG TABLET PO SCH (08:05)
[2016-06-11] MEDS: HEPARIN SODIUM,PORCINE 5,000 UNIT/ML 1 ML VIAL SQ SCH (08:05)
[2016-06-11] MEDS: LORazepam 0.5 MG TAB PO PRN (08:05)
[2016-06-11 08:11] VITALS: RESP 16; TEMP 97.3
--- NOTE | 2016-06-11 08:15 | P.PN ---
Subjective This is an 86-year-old female one of Dr. España with a previous medical history significant for diabetes mellitus type 2, hyperlipidemia, depressive disorder, anxiety disorder, chronic tobacco use and dependence, patient was brought into the emergency department at [facility] yesterday because of change in her mentation according to her family and not able to contract right as a matter fact she was looking for her at the home, patient was seen in the ER had a chest x-ray that was negative ended up going for a computed tomography scan of the brain that was negative for acute infarct or bleed, patient had the flu swab that was negative as well as her EKG showed sinus rhythm with PACs with the chronic ischemic changes in the anterolateral lead patient was admitted to hospital for evaluation she was given aspirin 325 mg orally once every day, and she was placed on a monitor neurology consultation was obtained ultrasound of the carotid as well as echo care gram was obtained also we obtain cardiology consultation for evaluation of possible CAD. 06/10/2016:Patient is back to baseline and will be getting MRI before discharge in AM Objective - Vital Signs Vital signs: Vital Signs Temp 96.8 F L 06/10/16 08:00 Pulse 79 06/10/16 08:00 Resp 18 06/10/16 08:00 BP 122/60 06/10/16 08:00 Pulse Ox 99 06/10/16 08:00 Intake & Output 06/09/16 06/10/16 06/10/16 18:59 06:59 18:59 Intake Total 1700 350 240 Balance 1700 350 240 Weight 63.5 kg Intake: IV 1200 Sodium Chloride 0.9% 1, 1200 000 ml @ 100 mls/hr IV . Q10H HEMALATHA Rx#:[id number] Oral 500 350 240 Other: # Voids 1 - Exam - Constitutional General appearance: average body habitus, no acute distress - EENT Eyes: anicteric sclerae, EOMI, PERRLA, no ptosis, no scleral icterus, normal appearance ENT: NA/AT, normal oropharynx, no thrush Ears: bilateral: normal - Neck Neck: no lymphadenopathy, normal ROM, no rigidity, no stridor, no thyromegaly Carotids: bilateral: upstroke delayed Thyroid: bilateral: normal size - Respiratory Respiratory: bilateral: diminished, negative: dullness, rales, rhonchi, wheezing , prolonged expiration, prolonged inspiration - Cardiovascular Rhythm: regular Heart sounds: normal: S1, S2 Abnormal Heart Sounds: systolic murmur - Gastrointestinal General gastrointestinal: normal bowel sounds, soft, no splenomegaly, no tenderness, no umbilical hernia, no ventral hernia - Integumentary Integumentary: normal, normal turgor - Neurologic Neurologic: CNII-XII intact - Musculoskeletal Musculoskeletal: gait normal, strength equal bilaterally - Psychiatric Psychiatric: A&O x's 3, no appropriate affect, intact judgment & insight - Labs CBC & Chem 7: 06/10/16 05:56 06/10/16 05:56 Labs: Abnormal Lab Results - Last 24 Hours (Table) 06/09/16 06/09/16 06/09/16 Range/Units 11:32 16:27 20:57 Chloride (98-107) mmol/L Glucose (74-99) mg/dL POC Glucose (mg/dL) 111 H 139 H 187 H (75-99) mg/dL 06/10/16 06/10/16 Range/Units 05:56 06:10 Chloride 108 H (98-107) mmol/L Glucose 108 H (74-99) mg/dL POC Glucose (mg/dL) 112 H (75-99) mg/dL Assessment and Plan Plan: Assessment and plan: 1. Altered mental status possibly due to worsening vascular dementia, doubt CVA at this point, her neurologic exam is completely normal, however because of her risk factors she will be admitted to the telemetry unit, she will be placed on aspirin 325 mg orally once every day, neuro check every 2 hours for the next 24 hours, ultrasound of the carotids, echocardiogram, neurology consultation. Patient may need to go for MRI for evaluation of her memory as well with and without gadolinium. 2. Possible CAD. We will obtain echocardiogram at this time we will obtain cardiology consultation especially with her EKG changes. 3. Diabetes mellitus type 2. Continue glipizide 2.5 mg orally once every day as well as Januvia 100 mg orally once every day, continue blood glucose monitoring once every day. 4. Hyperlipidemia. Continue Crestor 5 mg orally once every day. 5. Anxiety disorder. Continue Ativan 1 mg orally twice every day. 6. Depressive disorder. Continue Effexor X are 225 mg orally once every day. 7. DVT prophylaxis. Heparin 5000 units subcutaneously every 12 hours. 8. Await results of MRI in AM then can be discharged.
[2016-06-11 11:46] LABS: Glucose,Whole Blood 231 mg/dL (75-99)
[2016-06-11 12:02] LABS: Hemoglobin A1C 7.1 % (4.2-6.1)
[2016-06-11 13:06] VITALS: PULSE 77
--- NOTE | 2016-06-11 13:53 | P.PN ---
Subjective Principal diagnosis: Mental status changes History of present illness: This is a pleasant 86-year-old female patient with a history of diabetes, COPD, current smoker, and hyperlipidemia. She is brought to the emergency department by her children who noticed some change in mental status. She was asking about her and brothers and sisters who have been for many years. Computed tomography scan of the brain showed no acute intracranial abnormalities , cerebral atrophy and mild small vessel ischemia. Chest x-ray was negative, troponins less than 0.012. EKG showed sinus tachycardia and likely LVH with left ventricular strain pattern. Echocardiogram with Doppler study was performed which revealed an ejection fraction of 55-60% with [id number] mitral regurgitation. Blood pressure 134/60 heart rate in the 70s. Objective - Vital Signs Vital signs: Vital Signs Temp 97.3 F L 06/11/16 08:11 Pulse 77 06/11/16 13:06 Resp 16 06/11/16 13:06 BP 134/65 06/11/16 13:06 Pulse Ox 94 L 06/11/16 13:06 Intake & Output 06/10/16 06/11/16 06/11/16 18:59 06:59 18:59 Intake Total 1000 Balance 1000 Weight 63.6 kg Intake: Oral 1000 Other: Voiding Method Toilet Toilet # Voids 2 1 1 - Exam PHYSICAL EXAMINATION: HEENT: Head is atraumatic, normocephalic. Pupils equal, round. Neck is supple. There is no elevated jugular venous pressure. HEART EXAMINATION: Heart sounds regular, S1 and S2 grade 3/6 midsystolic murmur. CHEST EXAMINATION: Lungs are clear to auscultation and precussion. No chest wall tenderness is noted on palpation or with deep breathing. ABDOMEN: Soft, nontender. Bowel sounds are heard. No organomegaly noted. EXTREMITIES: 2+ peripheral pulses with no evidence of peripheral edema and no calf tenderness noted. NEUROLOGIC patient is awake, alert and oriented 3 with delay, mild confusion noted. - Labs CBC & Chem 7: 06/10/16 05:56 06/10/16 05:56 Labs: Abnormal Lab Results - Last 24 Hours (Table) 06/10/16 06/11/16 06/11/16 Range/Units 20:47 05:47 05:54 POC Glucose (mg/dL) 157 H 142 H (75-99) mg/dL Hemoglobin A1c 7.1 H (4.2-6.1) % 06/11/16 Range/Units 11:38 POC Glucose (mg/dL) 231 H (75-99) mg/dL Hemoglobin A1c (4.2-6.1) % Assessment and Plan Plan: Assessment and Plan Plan: Assessment and plan #1 altered mental status, secondary to worsening vascular dementia versus CVA, awaiting further evaluation by neurology #2 diabetes #3 hyperlipidemia #4 midsystolic murmur From cardiology's perspective, echocardiogram with Doppler study reveals an ejection fraction of 55-60%. From cardiology's perspective, we will follow this patient with you now on an as-needed basis only, please don't hesitate to call with any questions. DNP note has been reviewed, I agree with a documented findings and plan of care. Patient was seen and examined.
--- NOTE | 2016-06-11 14:55 | MR ---
EXAMINATION TYPE: MR brain wo con DATE OF EXAM: 06/11/2016 2:39 PM COMPARISON: 08/21/2011 HISTORY: Confusion FINDINGS: The ventricles, basal cisterns and sulci overlying the cerebral convexities are moderately enlarged. There is a greater central component which raises the possibility of normal pressure hydrocephalus. There is evidence of mild to moderate periventricular white matter ischemic demyelination. Remote deep white matter insults are also noted. No acute edema is seen on diffusion weighted imaging. There is no evidence for midline shift or mass effect. Acute intracranial hemorrhage or extra-axial collection is not evident. The paranasal sinuses and mastoid air cells are well-aerated. IMPRESSION: Age-related atrophic and chronic small vessel ischemic change. Correlate for normal pressure hydrocep halus. No acute intracranial process at this time.
[2016-06-11 16:19] VITALS: BP 166/78
--- NOTE | 2016-06-11 16:53 | P.PN ---
Subjective Principal diagnosis: Altered mental status This 86-year-old pleasant female continues to be evaluated by the neurology service. She was brought in for an episode of confusion. She seems to be back to baseline. No new complaints since her admission. Her MRI of the brain showed no acute intracranial abnormalities. There was some atrophy and small vessel ischemia. There was also an incidental mention for correlation for normal pressure hydrocephalus. She is asymptomatic for this. Her EEG was normal. Objective - Vital Signs Vital signs: Vital Signs Temp 97.3 F L 06/11/16 08:11 Pulse 77 06/11/16 16:19 Resp 16 06/11/16 16:19 BP 166/78 06/11/16 16:18 Pulse Ox 97 06/11/16 16:18 Intake & Output 06/10/16 06/11/16 06/11/16 18:59 06:59 18:59 Intake Total 1000 500 Balance 1000 500 Weight 63.6 kg Intake: Oral 1000 500 Other: Voiding Method Toilet Toilet # Voids 2 1 2 - Constitutional General appearance: Present: average body habitus, no acute distress - EENT Eyes: Present: PERRLA. Absent: abnormal pupil, ptosis ENT: Present: hearing grossly normal - Neck Neck: Present: normal ROM. Absent: rigidity - Respiratory Respiratory: negative: prolonged expiration, prolonged inspiration - Cardiovascular Rhythm: regular - Gastrointestinal General gastrointestinal: Absent: distended, tenderness - Neurologic Neurologic Comment(s): She is alert awake and oriented 3. Speech-language are normal. There is no facial asymmetry 3. There is no lateralizing weakness. There is no sensory deficit. No tremors or seizure-like activities are seen. - Labs CBC & Chem 7: 06/10/16 05:56 06/10/16 05:56 Labs: Abnormal Lab Results - Last 24 Hours (Table) 06/10/16 06/11/16 06/11/16 Range/Units 20:47 05:47 05:54 POC Glucose (mg/dL) 157 H 142 H (75-99) mg/dL Hemoglobin A1c 7.1 H (4.2-6.1) % 06/11/16 Range/Units 11:38 POC Glucose (mg/dL) 231 H (75-99) mg/dL Hemoglobin A1c (4.2-6.1) % Assessment and Plan (1) Hypertension Status: Chronic (2) Type 2 diabetes mellitus Status: Chronic (3) Hyperlipidemia Status: Chronic (4) Tobacco use Status: Chronic (5) Altered mental status Status: Acute (6) TIA (transient ischemic attack) Status: Acute Plan: She has likely suffered an episode of transient cerebral ischemia. Her EEG was normal. Continue cardiology evaluation and workup. Continue current medications, including aspirin 325 mg daily and Lipitor. She is cleared from a neurological standpoint. I have reviewed the history and physical on the above patient. I have reviewed the above note, and agree.
--- NOTE | 2016-06-12 08:05 | P.DS ---
Providers Date of admission: 06/08/16 18:48 Expected date of discharge: 06/11/16 Attending physician: Anuradha Barnes Consults: 06/09/16 11:21 Consult Physician Routine Consulting Provider: Km Moser Consult Reason/Comments: Possible CAD/Anterior ischemic EKG changes Do you want consulting provider notified?: Yes [facility] Course: This is an 86-year-old female one of Dr. España with a previous medical history significant for diabetes mellitus type 2, hyperlipidemia, depressive disorder, anxiety disorder, chronic tobacco use and dependence, patient was brought into the emergency department at [facility] yesterday because of change in her mentation according to her family and not able to contract right as a matter fact she was looking for her at the home, patient was seen in the ER had a chest x-ray that was negative ended up going for a computed tomography scan of the brain that was negative for acute infarct or bleed, patient had the flu swab that was negative as well as her EKG showed sinus rhythm with PACs with the chronic ischemic changes in the anterolateral lead patient was admitted to hospital for evaluation she was given aspirin 325 mg orally once every day, and she was placed on a monitor neurology consultation was obtained ultrasound of the carotid as well as echo care gram was obtained also we obtain cardiology consultation for evaluation of possible CAD. 06/10/2016:Patient is back to baseline and will be getting MRI before discharge in AM 06/11: Carotid ultrasound shows 50% stenosis in both internal carotid arteries. Echocardiogram reveals EF 55-60% with moderate mitral regurgitation, mild pulmonary regurgitation, a mildly dilated at 29-33, mild aortic valve sclerosis. She has been seen by neurology. EEG is pending. Homocysteine level normal at 10.58. Recommend continuing aspirin and Lipitor. Triglycerides 146, cholesterol 150, LDL 73 and HDL 48. Patient is also been evaluated by cardiology with recommendations to continue current medications. MRI of the brain reveals age-related atrophy and chronic small vessel ischemic change. Correlate for normal pressure hydrocephalus. No acute intracranial process. EEG was normal. Discharge diagnoses: 1. Altered mental status possibly due to worsening vascular dementia cannot rule out TIA 2. Possible CAD. 3. Diabetes mellitus type 2. A1c 7.1 4. Hyperlipidemia. 5. Anxiety disorder, generalized. 6. Depressive disorder, recurrent. Discharge plan: home Impression and plan of care have been directed as dictated by the signing physician. Lisa Webb nurse practitioner acting as scribe for signing physician. Cc Dr. Birch Patient Condition at Discharge: Good Plan - Discharge Summary New Discharge Prescriptions: Aspirin 81 mg PO DAILY #30 chewable Discharge Medication List LORazepam [Lorazepam] 0.5 mg PO BID PRN 01/01/16 [History] Rosuvastatin [Crestor] 10 mg PO HS 01/01/16 [History] glipiZIDE [Glipizide Xl] 2.5 mg PO DAILY 01/01/16 [History] Venlafaxine HCl [Effexor XR] 225 mg PO DAILY 06/08/16 [History] sitaGLIPtin [Januvia] 100 mg PO DAILY 06/08/16 [History] Aspirin 81 mg PO DAILY #30 chewable 06/11/16 [Rx] Follow up Appointment(s)/Referral(s): Elena Pena MD [Primary Care Provider] - 06/25/16 2:[address] MD [STAFF PHYSICIAN] - 1 Week (Office to call pt to schedule follow up) Patient Instructions/Handouts: Transient Ischemic Attack (DC) Discharge Disposition: HOME SELF-CARE
--- NOTE | 2016-06-12 08:48 | EEG ---
DATE OF SERVICE: 06/11/2016 INDICATIONS FOR EXAMINATION: Altered mental status. AGE: 86Y DESCRIPTION OF THE PROCEDURE: This EEG was performed using a 21-channel digital electroencephalograph, following the international 10 to 20 system. DESCRIPTION OF THE RECORDING: From the beginning of the tracing, and with the patient's eyes closed, the background rhythm was mostly consisting of 9 Hz alpha frequency in the posterior occipital leads. No obvious asymmetry is seen. Frequent muscle artifacts and movement artifacts are seen. Photic stimulation was performed with a minimal driving response seen. No pathological waves were elicited. Hyperventilation was not performed. The patient remains awake throughout the tracing. No epileptiform discharges were seen. Her EKG lead showed an irregularly irregular rhythm with a normal rate. INTERPRETATION: This awake EEG can be considered within normal limits, except her EKG lead showed an irregularly irregular rhythm with a normal rate. No epileptiform discharges were seen. The absence of epileptiform discharges does not rule out the diagnosis of epilepsy, therefore, clinical correlation is recommended.
== END 2016-06-11 18:03 | disposition home or self-care (01) ==
LOC: EC 16:11 → 6SEL 18:48
PROVIDERS: ADMIT Internal Medicine; ATTEND Internal Medicine
DX: R41.82 Altered mental status, unspecified (principal); E11.9 Type 2 diabetes mellitus without complications; E78.5 Hyperlipidemia, unspecified; F41.1 Generalized anxiety disorder; F32.9 Major depressive disorder, single episode, unspecified; I67.82 Cerebral ischemia; F01.50 Vascular dementia, unspecified severity, without behavioral disturbance, psychotic disturbance, mood disturbance, and anxiety; E78.00 Pure hypercholesterolemia, unspecified; F17.210 Nicotine dependence, cigarettes, uncomplicated; G91.2 (Idiopathic) normal pressure hydrocephalus; I10 Essential (primary) hypertension; I34.0 Nonrheumatic mitral (valve) insufficiency; I37.1 Nonrheumatic pulmonary valve insufficiency; I65.23 Occlusion and stenosis of bilateral carotid arteries; J44.9 Chronic obstructive pulmonary disease, unspecified; Z79.82 Long term (current) use of aspirin; Z79.899 Other long term (current) drug therapy; Z79.84 Long term (current) use of oral hypoglycemic drugs; R00.0 Tachycardia, unspecified; R26.2 Difficulty in walking, not elsewhere classified
CPT/HCPCS: 36415; 95816; 93005; 93306; 97116; 97162; 97166; 92523; 80061; 80053; 80048; 83036; 82550; 82553; 83735; 84100; 84484 ×2; 85025; 85027; 85610; 85730; 81003; 83090; 83520; 87086; 87502; 71010; 93880; 70450; 70551; 96360; 96361 ×2; 99285; G0378 ×4; J1644 ×3; 96372

== ENCOUNTER 2017-03-25 09:14 | Emergency (ER) | payer MEDICARE ==
[2017-03-25] MEDS ORDERED: SODIUM CHLORIDE 0.9% 1,000 ML IV STA ×2 (09:26→09:43)
[2017-03-25 09:49] LABS: Basophils % (A) 1 %; Eosinophils # (A) 0.1 k/uL (0-0.7); Eosinophils % (A) 1 %; HCT 46.9 % (34.0-46.0); HGB 15.6 gm/dL (11.4-16.0); Lymphocytes # (A) 1.9 k/uL (1.0-4.8); Lymphocytes % (A) 28 %; MCH 31.6 pg (25.0-35.0); MCHC 33.3 g/dL (31.0-37.0); MCV 94.9 fL (80.0-100.0); Mean Platelet Volume 7.3; Monocytes # (A) 0.5 k/uL (0-1.0); Monocytes % (A) 7 %; Neutrophils # (A) 4.2 k/uL (1.3-7.7); Neutrophils % (A) 61 %; Platelet Count 234 k/uL (150-450); RBC 4.94 m/uL (3.80-5.40); RDW 12.7 % (11.5-15.5); WBC 6.9 k/uL (3.8-10.6)
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
[2017-03-25 10:01] LABS: Albumin 4.6 g/dL (3.5-5.0); Calcium 9.9 mg/dL (8.4-10.2); Potassium 3.8 mmol/L (3.5-5.1); Total Bilirubin 0.6 mg/dL (0.2-1.3); Total Protein 7.8 g/dL (6.3-8.2)
--- NOTE | 2017-03-25 10:08 | XR ---
EXAMINATION TYPE: XR chest 2V DATE OF EXAM: 03/25/2017 COMPARISON: 06/08/2016 HISTORY: Cough and congestion TECHNIQUE: Frontal and lateral views of the chest are obtained. FINDINGS: There is no focal air space opacity, pleural effusion, or pneumothorax seen. Right hemidi aphragm eventration is seen. Pulmonary hyperinflation and flattening of the diaphragm suggests underl abraham COPD. The cardiac silhouette size is within normal limits. The osseous structures are intact. Multilevel mild degenerative changes of the thoracic spine and acromioclavicular joints are noted. IMPRESSION: 1. No acute cardiopulmonary process. 2. Radiographic findings suggesting underlying COPD.
[2017-03-25] MEDS ORDERED: SODIUM CHLORIDE 0.9% 1,000 ML IV ONE (10:10)
--- NOTE | 2017-03-25 10:10 | XR ---
EXAMINATION TYPE: XR KUB DATE OF EXAM: 03/25/2017 10:04 AM CLINICAL HISTORY: Cough, congestion, and fever for 4 days. TECHNIQUE: Upright and supine images of the abdomen is obtained. COMPARISON: None. FINDINGS: Scattered gas is seen in non-distended small bowel loops. Gas and fecal material is seen in non-distended colon. There is no visceromegaly, pneumoperitoneum, or abnormal calcification apprecia song. Moderate atherosclerosis is seen of the abdominal aorta and its branches. The lung bases are bernadine ar and the osseous structures are intact. Multilevel degenerative changes of the lumbosacral spine ar e seen. IMPRESSION: Nonobstructive bowel gas pattern.
[2017-03-25 11:04] LABS: Creatine Kinase 95 U/L (30-135)
[2017-03-25 11:08] LABS: INR 1.1 (<1.2); Prothrombin Time 10.7 sec (9.0-12.0)
[2017-03-25 11:09] LABS: Appearance,Urine Clear (Clear); Bilirubin,Urine Negative (Negative); Blood,Urine Negative (Negative); Color,Urine Yellow; Glucose,Urine (UA) Negative (Negative); Ketones,Urine Negative (Negative); Leukocyte Esterase,Urine Negative (Negative); Nitrite,Urine Negative (Negative); Protein,Urine Negative (Negative); Specific Gravity,Urine 1.008 (1.001-1.035); Urobilinogen,Urine <2.0 mg/dL (<2.0)
[2017-03-25 11:16] LABS: Troponin I <0.012 ng/mL (0.000-0.034)
[2017-03-25 11:26] LABS: Creatine Kinase MB 2.7 ng/mL (0.0-2.4)
[2017-03-25 12:20] VITALS: RESP 18
[2017-03-25 12:58] VITALS: BP 171/76; PULSE 94; TEMP 97.2
== END 2017-03-25 12:56 | disposition home or self-care (01) ==
LOC: EC 09:14
DX: E11.9 Type 2 diabetes mellitus without complications (principal); E86.0 Dehydration; E78.5 Hyperlipidemia, unspecified; F17.200 Nicotine dependence, unspecified, uncomplicated; Z79.84 Long term (current) use of oral hypoglycemic drugs; Z79.899 Other long term (current) drug therapy
CPT/HCPCS: 36415; 71046; 74018; 80053; 81003; 82150; 82550; 82553; 83605; 83690; 84484; 85025; 85610; 87040; 87502; 93005; 96360; 96361; 99284

== ENCOUNTER → 2017-06-04 | Outpatient (CLI) | payer MEDICARE ==
[2017-06-04 19:47] LABS: Basophils % (A) 0 %; Eosinophils # (A) 0.1 k/uL (0-0.7); Eosinophils % (A) 1 %; HCT 39.9 % (34.0-46.0); HGB 12.9 gm/dL (11.4-16.0); Lymphocytes # (A) 1.4 k/uL (1.0-4.8); Lymphocytes % (A) 22 %; MCH 31.2 pg (25.0-35.0); MCHC 32.3 g/dL (31.0-37.0); MCV 96.6 fL (80.0-100.0); Mean Platelet Volume 9.4; Monocytes # (A) 0.4 k/uL (0-1.0); Monocytes % (A) 7 %; Neutrophils # (A) 4.3 k/uL (1.3-7.7); Neutrophils % (A) 68 %; Platelet Count 170 k/uL (150-450); RBC 4.14 m/uL (3.80-5.40); WBC 6.2 k/uL (3.8-10.6)
[2017-06-04 19:48] LABS: Albumin 3.9 g/dL (3.5-5.0); Calcium 9.3 mg/dL (8.4-10.2); Potassium 4.5 mmol/L (3.5-5.1); Total Bilirubin 0.3 mg/dL (0.2-1.3); Total Protein 6.6 g/dL (6.3-8.2)
[2017-06-04 20:04] LABS: T4, Free (Free Thyroxine) 0.93 ng/dL (0.78-2.19)
[2017-06-05 02:03] LABS: Hemoglobin A1C 7.9 % (4.0-6.0)
== END | disposition home or self-care (01) ==
LOC: MMGSC 11:28
PROVIDERS: ATTEND Family Medicine
DX: E78.5 Hyperlipidemia, unspecified (principal); E11.9 Type 2 diabetes mellitus without complications; I10 Essential (primary) hypertension
CPT/HCPCS: 36415; 80053; 80061; 82043; 82570; 83036; 84439; 84443; 85025

== ENCOUNTER 2017-08-04 18:27 | Inpatient (IN) | payer MEDICARE ==
[2017-08-04] MEDS ORDERED: SODIUM CHLORIDE 0.9% 1,000 ML IV STA ×2 (18:56)
[2017-08-04] MEDS ORDERED: IPRATROPIUM-ALBUTEROL 3 ML NEB INHALATION STA (18:57)
[2017-08-04] MEDS ORDERED: LABETALOL 5 MG/ML VIAL MDV IVP STA (18:59)
[2017-08-04 19:30] LABS: Basophils % (A) 0 %; Eosinophils # (A) 0.1 k/uL (0-0.7); Eosinophils % (A) 1 %; HCT 43.5 % (34.0-46.0); HGB 14.6 gm/dL (11.4-16.0); Lymphocytes # (A) 2.3 k/uL (1.0-4.8); Lymphocytes % (A) 29 %; MCH 31.3 pg (25.0-35.0); MCHC 33.6 g/dL (31.0-37.0); MCV 93.1 fL (80.0-100.0); Mean Platelet Volume 7.5; Monocytes # (A) 0.5 k/uL (0-1.0); Monocytes % (A) 6 %; Neutrophils % (A) 61 %; Platelet Count 214 k/uL (150-450); RBC 4.67 m/uL (3.80-5.40); RDW 13.3 % (11.5-15.5); WBC 8.1 k/uL (3.8-10.6)
--- NOTE | 2017-08-04 19:32 | XR ---
EXAMINATION TYPE: XR chest 2V DATE OF EXAM: 08/04/2017 COMPARISON: 03/25/2017 HISTORY: 87-year-old female with chest pain TECHNIQUE: Frontal and lateral views FINDINGS: Heart normal size. Atherosclerotic arch calcifications. Mild diffuse prominence is unchanged. Hyperin flation with flattening of the hemidiaphragms. Strandy atelectasis left base. No consolidation or ple ural effusion. IMPRESSION: COPD and chronic appearing changes. No acute cardiopulmonary process.
[2017-08-04 19:40] LABS: Albumin 4.5 g/dL (3.5-5.0); Calcium 9.9 mg/dL (8.4-10.2); Magnesium 2.2 mg/dL (1.6-2.3); Potassium 4.1 mmol/L (3.5-5.1); Total Bilirubin 0.5 mg/dL (0.2-1.3); Total Protein 7.5 g/dL (6.3-8.2)
[2017-08-04 19:48] LABS: Creatine Kinase 97 U/L (30-135)
[2017-08-04 19:51] LABS: INR 1.1 (<1.2); Partial Thromboplastin Time 23.7 sec (22.0-30.0); Prothrombin Time 10.7 sec (9.0-12.0)
[2017-08-04 20:03] LABS: Troponin I <0.012 ng/mL (0.000-0.034)
[2017-08-04 20:11] LABS: D-Dimer 1.69 mg/L FEU (<0.60)
[2017-08-04] MEDS ORDERED: RX INFO: IV CONTRAST WAS GIVEN 1 EACH MISC MISCELLANE PRN ×2 (20:14→20:18)
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
--- NOTE | 2017-08-04 21:22 | CT ---
EXAMINATION TYPE: CT chest angio for PE DATE OF EXAM: 08/04/2017 COMPARISON: 09/07/2011 HISTORY: 87-year-old female Cough x 4 days, elevated d-dimer. TECHNIQUE: Contiguous axial scanning of the chest performed with IV Contrast, patient injected with 5 7 mL of Isovue 370. Coronal/sagittal MIP reconstructions performed. CT DLP: 233.8 mGycm Automated exposure control for dose reduction was used. FINDINGS: The heart is normal size without pericardial effusion. Coronary vessel calcifications are present in remarkable for coronary artery disease. Mitral annular calcifications are present. Aorta normal caliber with conventional arch vessel branching anatomy and mild to moderate prostatic c alcifications. Satisfactory opacification of the pulmonary arterial system Small segmental and subsegmental left lower lobe branch pulmonary embolus, refer to axial images 99 t hrough 109. Otherwise, no pulmonary embolus seen. No flattening of the interventricular septum. Minimal reflux of contrast into the IVC. RV to LV ratio is less than 1. Evaluation of the lungs shows mild biapical pleural parenchymal scarring and mild diffuse bronchial w all thickening centrally. Minimal scattered emphysematous cysts. Tiny 2 mm calcified granuloma periph eral right base unchanged axial image 109. 4 mm subpleural pulmonary nodule peripheral left base is u nchanged axial image 122. There is endobronchial plugging involving couple of the basilar segmental left lower lobe bronchi, re yokasta to axial images 80 and 85 for example. No consolidation or pleural effusion. Small hiatal hernia. There is some irregular soft tissue projecting into the lumen, axial image 115, that could represent mucosal redundancy. A 4.3 cm hypodense lesion centrally along the hepatic dome is larger from prior where it measured 2.4 cm. It has intermediate attenuation. Moderate atherosclerotic calcifications within the abdominal ao rta. Bones: Mild endplate spondylosis mid to lower thoracic spine. IMPRESSION: 1. EXAM POSITIVE FOR A SMALL SEGMENTAL AND SUBSEGMENTAL BRANCH EMBOLUS TO THE BASILAR LEFT LOWER LOBE . MINIMAL BURDEN. NO EVIDENCE FOR RIGHT HEART STRAIN. 2. CAD. 3. THERE IS SOME ENDOBRONCHIAL PLUGGING WITHIN A FEW BASILAR LEFT LOWER LOBE BRONCHI. FINDINGS MAY RE PRESENT SOME MUCUS PLUGGING. RECOMMEND BRONCHOSCOPIC EVALUATION IF THE PATIENT IS AT INCREASED RISK F OR DEVELOPMENT OF LUNG CANCER. OTHERWISE, A THREE-MONTH FOLLOW-UP CT CAN BE PERFORMED. 4. ENLARGING LESION WITHIN THE CENTRAL HEPATIC DOME MEASURING 4.3 CM VERSUS 2.4 CM IN 2012. RELATIVEL Y INDOLENT BEHAVIOR SUGGESTS A BENIGN ETIOLOGY SUCH A COMPLICATED CYST. NONEMERGENT FOLLOW-UP LIVE R ULTRASOUND CAN ATTEMPT FURTHER CATHETERIZATION. 5. SMALL HIATAL HERNIA. THERE IS SOME IRREGULAR SOFT TISSUE PROJECTING INTO THE LUMEN THAT COULD REPR ESENT MUCOSAL REDUNDANCY OR NEOPLASM. DIRECT VISUALIZATION INDICATED. Critical finding called to Dr. Hale in the ER at 9:18 PM.
[2017-08-04] MEDS ORDERED: HEPARIN SODIUM,PORCINE 10,000 UNIT/ML 1 ML VIAL IV ONE (21:40)
[2017-08-04] MEDS ORDERED: methylPREDNISolone SOD SUCCI 125 MG/2 ML VIAL IV STA (21:40)
[2017-08-04] MEDS ORDERED: IPRATROPIUM-ALBUTEROL 3 ML NEB INHALATION PRN (21:40)
[2017-08-04] MEDS ORDERED: HEPARIN SODIUM,PORCINE 5,000 UNIT/ML 1 ML VIAL IV PRN (21:40)
[2017-08-04] MEDS ORDERED: IBUPROFEN 400 MG TAB PO PRN (22:15)
[2017-08-04] MEDS ORDERED: SODIUM CHLORIDE 0.9% 1,000 ML IV SCH (22:15)
[2017-08-04] MEDS ORDERED: ACETAMINOPHEN TAB 325 MG TAB PO PRN (22:15)
--- NOTE | 2017-08-04 22:31 | P.HPIM ---
History of Present Illness H&P Date: 08/04/17 Chief Complaint: sob 79-year-old female presents emergency room because of worsening shortness of breath, cough and congestion for the past 4 days. The cough was initially productive of brown and yellow phlegm but currently it is white. No hemoptysis. She denied any subjective fevers but did have some chills. She does have pleuritic chest pain associated with the cough and deep breathing. Her son was sick before she got sick herself. Patient has been feeling very weak over the last several days and barely getting out of bed. Daughter mentioned that her right leg was swollen 2 weeks ago and that the swelling is down now. She has some him to get it checked out by a physician but patient declined that. She denied any abdominal pain, nausea vomiting, diarrhea, numbness or tingling, dysuria or hematuria, constipation or diarrhea, headaches or visual changes, or any other symptoms Review of Systems 12 point review of system performed, negative except for HPI Past Medical History Past Medical History: COPD, Diabetes Mellitus, Hyperlipidemia, Osteoarthritis ( OA) Additional Past Medical History / Comment(s): OCC STRESS INCONT OF URINE, " HEART BURN" History of Any Multi-Drug Resistant Organisms: None Reported Past Surgical History: Adenoidectomy, Joint Replacement, Tonsillectomy Additional Past Surgical History / Comment(s): RT KNEE REPLACMENT Past Anesthesia/Blood Transfusion Reactions: No Reported Reaction Past Psychological History: No Psychological Hx Reported Smoking Status: Current every day smoker Past Alcohol Use History: Occasional Past Drug Use History: None Reported - Past Family History Mother Family Medical History: Coronary Artery Disease (CAD), Diabetes Mellitus ( Mother at age of 88 from diabetes and CAD.) Additional Family Medical History / Comment(s): PT'S MOM AND 2 AUNTS LIVED TO BE 89 Father Family Medical History: Unable to Obtain (Father at age of) Additional Family Medical History / Comment(s): LIVED TO BE IN HIS 90'S Brother(s) Family Medical History: No Reported History (Patient has 4 brothers no major medical problems) Sister(s) Family Medical History: No Reported History (Patient has 2 sisters no major medical problems) Son(s) Family Medical History: No Reported History (Patient has 3 sons no major medical problems) Medications and Allergies Home Medications Medication Instructions Recorded Confirmed Type LORazepam [Lorazepam] 0.5 mg PO BID PRN 01/01/16 03/25/17 History Rosuvastatin [Crestor] 10 mg PO HS 01/01/16 03/25/17 History Venlafaxine HCl [Effexor XR] 225 mg PO DAILY 06/08/16 03/25/17 History Aspirin 81 mg PO DAILY #30 chewable 06/11/16 Rx glipiZIDE XL [Glucotrol Xl] 5 mg PO DAILY 03/25/17 03/25/17 History Allergies Allergy/AdvReac Type Severity Reaction Status Date / Time No Known Allergies Allergy Verified 08/04/17 18:36 Physical Exam Vitals: Vital Signs Temp Pulse Resp BP Pulse Ox 08/04/17 21:27 70 18 153/67 100 08/04/17 19:17 78 18 170/77 98 08/04/17 19:14 96 08/04/17 19:00 96 08/04/17 18:31 97.9 F 96 18 187/126 99 Intake and Output 08/04/17 08/04/17 08/04/17 06:59 14:59 22:59 Other: Weight 63.503 kg Constitutional: No acute distress, conversant, pleasant Eyes:Anicteric sclerae, moist conjunctiva, no lid-lag, PERRLA, ENMT: Oropharynx clear, no erythema, exudates Neck: Supple, FROM, no masses, or JVD, No carotid bruits, No thyromegaly Lungs: Bilateral expiratory wheezes and rhonchi Clear to percussion, Normal respiratory effort, no accessory muscle use Cardiovascular: Heart regular in rate and rhythm, No murmurs, gallops, or rubs, No peripheral edema Abdominal: Soft, Nontender, no guarding, rebound or rigidity, Normoactive bowel sounds, No hepatomegaly, No splenomegaly, No palpable mass Skin: Normal temperature, tone, texture, turgor, no induration, No subcutaneous nodules, No rash, lesions, No ulcers Extremities: Positive Catherine sign in the right leg, right calf tenderness positive, No digital cyanosis, No clubbing, Pedal pulses intact and symmetrical , Radial pulses intact and symmetrical, No calf tenderness Psychiatric: Alert and oriented to person, place and time, appropriate affect, intact judgement Neuro: Muscles Strength 5/5 in all 4 extremities, Sensation to light touch grossly present throughout, Cranial nerves II-XII grossly intact, no focal sensory deficits Results CBC & Chem 7: 08/04/17 19:12 08/04/17 19:12 Labs: Abnormal Lab Results - Last 24 Hours (Table) 08/04/17 08/04/17 Range/Units 19:12 19:12 D-Dimer 1.69 H (<0.60) mg/L FEU Glucose 134 H (74-99) mg/dL Assessment and Plan Plan: #1 Acute shortness of breath: Computed tomography scan of the chest was done in the emergency department, reviewed, consistent with left lower lobe pneumonia in addition to PE Labs reviewed Patient likely has a component of acute COPD exacerbation Start treatment with heparin drip Ceftriaxone and azithromycin Steroids and DuoNeb's Order bilateral lower extremities Doppler ultrasound to rule out DVT, Consult pulmonary, patient might need bronchoscopy based on computed tomography scan findings #2 history of Diabetes Mellitus 2, SSI Hold oral hypoglycemics #3 Hyperlipidemia, Osteoarthritis (OA), anxiety: Stable Continue home meds #4 Smoking: Counseled to quit Nicotine patch
[2017-08-04] MEDS: HEPARIN SODIUM,PORCINE/D5W PMX 25,000 UNIT in DEXTROSE/WATER 1 500ML.BAG IV SCH (22:33)
[2017-08-05 03:50] LABS: Basophils % (A) 0 %; Eosinophils % (A) 0 %; HCT 40.7 % (34.0-46.0); HGB 13.3 gm/dL (11.4-16.0); Lymphocytes # (A) 0.9 k/uL (1.0-4.8); Lymphocytes % (A) 17 %; MCH 31.4 pg (25.0-35.0); MCHC 32.6 g/dL (31.0-37.0); MCV 96.1 fL (80.0-100.0); Mean Platelet Volume 7.6; Monocytes # (A) 0.1 k/uL (0-1.0); Monocytes % (A) 2 %; Neutrophils # (A) 4.2 k/uL (1.3-7.7); Neutrophils % (A) 80 %; Platelet Count 150 k/uL (150-450); RBC 4.23 m/uL (3.80-5.40); RDW 13.4 % (11.5-15.5); WBC 5.3 k/uL (3.8-10.6)
[2017-08-05 04:14] LABS: INR 1.2 (<1.2); Prothrombin Time 11.4 sec (9.0-12.0)
[2017-08-05 04:58] LABS: Phosphorus 3.9 mg/dL (2.5-4.5)
[2017-08-05 05:45] LABS: Magnesium 2.1 mg/dL (1.6-2.3)
[2017-08-05] MEDS: methylPREDNISolone SOD SUCCI 40 MG/ML 1 ML VIAL IV SCH ×3 (05:56→18:00)
[2017-08-05] MEDS: HEPARIN SODIUM,PORCINE/D5W PMX 25,000 UNIT in DEXTROSE/WATER 1 500ML.BAG IV SCH (05:59)
[2017-08-05] MEDS ORDERED: methylPREDNISolone SOD SUCCI 125 MG/2 ML VIAL IV SCH (06:00)
[2017-08-05 07:27] LABS: Glucose,Whole Blood 311 mg/dL (75-99)
[2017-08-05] MEDS: INSULIN ASPART 100 UNIT/ML 1 ML 10 ML VIAL SQ SCH ×4 (07:33→21:49)
[2017-08-05] MEDS ORDERED: IPRATROPIUM-ALBUTEROL 3 ML NEB INHALATION SCH ×2 (08:00)
--- NOTE | 2017-08-05 08:45 | US ---
EXAMINATION TYPE: US venous doppler duplex LE BI DATE OF EXAM: 08/05/2017 8:14 AM COMPARISON: NONE CLINICAL HISTORY: 81-year-old female swelling hx of pe. PE, pt states right leg swelling SIDE PERFORMED: Bilateral TECHNIQUE: The lower extremity deep venous system is examined utilizing real time linear array sonog david with graded compression, doppler sonography and color-flow sonography. FINDINGS: VESSELS IMAGED: External Iliac Vein (EIV) Common Femoral Vein Deep Femoral Vein Greater Saphenous Vein * Femoral Vein Popliteal Vein Small Saphenous Vein * Proximal Calf Veins (* superficial vessels) Right Leg: Negative for DVT Left Leg: Negative for DVT IMPRESSION: No evidence for DVT within the bilateral lower extremities imaged from the groin to the upper calves.
[2017-08-05 08:52] VITALS: BMI 25.6
[2017-08-05] MEDS ORDERED: AZITHROMYCIN 500 MG in SODIUM CHLORIDE 0.9% 250 ML IVPB SCH (09:00)
[2017-08-05] MEDS ORDERED: cefTRIAXone IN SWFI 1,000 MG/10 ML SYRINGE IVP SCH (09:00)
[2017-08-05] MEDS: VENLAFAXINE HCL ER 75 MG CAP PO SCH (10:16)
[2017-08-05] MEDS: ASPIRIN 81 MG PO SCH (10:16)
[2017-08-05] MEDS: APIXABAN 2.5 MG TABLET PO SCH ×2 (10:16→21:51)
--- NOTE | 2017-08-05 11:13 | P.PN ---
Subjective Progress Note Date: 08/05/17 Patient seen and examined in the ER, she is doing well only complaints of mild cough, reports her breathing is much improved. Has no other complaints, denies being in distress. Objective - Vital Signs Vital signs: Vital Signs Temp 97.8 F 08/04/17 23:45 Pulse 82 08/05/17 07:24 Resp 18 08/05/17 07:24 BP 167/72 08/05/17 07:24 Pulse Ox 100 08/05/17 07:24 Intake & Output 08/04/17 08/05/17 08/05/17 18:59 06:59 18:59 Intake Total 139.827 Balance 139.827 Weight 63.503 kg 63.5 kg Intake: Intake, IV Titration 139.827 Amount Heparin Sodium,Porcine/ 139.827 D5w Pmx 25,000 unit In Dextrose/Water 1 500ml. bag @ 18 UNITS/KG/HR 22. 86 mls/hr IV .[id number] [facility] Rx#:[id number] - Exam Constitutional: No acute distress, conversant, pleasant Eyes: Anicteric sclerae, moist conjunctiva, no lid-lag, PERRLA ENMT: NC/AT,Oropharynx clear, no erythema, exudates Neck:Supple, FROM, no masses, or JVD, No carotid bruits; No thyromegaly Lungs: Expiratory wheezes, Clear to percussion, Normal respiratory effort, no accessory muscle use Cardiovascular: Heart regular in rate and rhythm, No murmurs, gallops, or rubs no peripheral edema Abdominal: Soft Nontender, nom distended, no guarding, no rebound or rigidity, Normoactive bowel sounds No hepatomegaly, No splenomegaly, No palpable mass No abdominal wall hernia noted Skin: Normal temperature, tone, texture, turgor, No induration No subcutaneous nodules, No rash, lesions, No ulcers Extremities:No digital cyanosis No clubbing, Pedal pulses intact and symmetrical Radial pulses intact and symmetrical Normal gait and station, No calf tenderness Psychiatric: Alert and oriented to person, place and time, Appropriate affect Intact judgement Neuro: Muscles Strength 5/5 in all 4 extremities, Sensation to light touch grossly present throughout, Cranial nerves II-XII grossly intact. No focal sensory deficits - Labs CBC & Chem 7: 08/05/17 03:18 08/04/17 19:12 Labs: Abnormal Lab Results - Last 24 Hours (Table) 08/04/17 08/04/17 08/05/17 Range/Units 19:12 19:12 03:18 Lymphocytes # (1.0-4.8) k/uL INR 1.2 H (<1.2) APTT 113.0 H* (22.0-30.0) sec D-Dimer 1.69 H (<0.60) mg/L FEU Glucose 134 H (74-99) mg/dL POC Glucose (mg/dL) (75-99) mg/dL 08/05/17 08/05/17 Range/Units 03:18 07:24 Lymphocytes # 0.9 L (1.0-4.8) k/uL INR (<1.2) APTT (22.0-30.0) sec D-Dimer (<0.60) mg/L FEU Glucose (74-99) mg/dL POC Glucose (mg/dL) 311 H (75-99) mg/dL Assessment and Plan (1) COPD exacerbation Narrative/Plan: * Likely triggered by pneumonia superimposed on acute PE * Continue with systemic steroids, scheduled and when necessary breathing treatments * Change antibiotic therapy with IV Rocephin and azithromycin to Levaquin orally * Pulmonary consultation pending * Start patient on Mucinex Current Visit: Yes Status: Acute Code(s): J44.1 - CHRONIC OBSTRUCTIVE PULMONARY DISEASE W (ACUTE) EXACERBATION SNOMED Code(s): 650945372 (2) Pulmonary embolism Narrative/Plan: * Discussed anticoagulation options patient is elected to proceed with Eliquis was started at 2.5 mg by mouth twice a day * We'll continue for 3-6 months * Lower extremity venous Dopplers negative Current Visit: Yes Status: Acute Code(s): I26.99 - OTHER PULMONARY EMBOLISM WITHOUT ACUTE COR PULMONALE SNOMED Code(s): 39111705 (3) Hypertension Narrative/Plan: * Blood pressure slightly elevated * Continue home regimen Current Visit: No Status: Chronic Code(s): I10 - ESSENTIAL (PRIMARY) HYPERTENSION SNOMED Code(s): 46099124 (4) Pneumonia Narrative/Plan: * Treatment above continue with Levaquin Current Visit: Yes Status: Acute Code(s): J18.9 - PNEUMONIA, UNSPECIFIED ORGANISM SNOMED Code(s): 370196546 (5) Type 2 diabetes mellitus with hyperglycemia Narrative/Plan: * Continue with Accu-Cheks before every meal and hs with correctional scale insulin * Blood sugars elevated secondary to infection superimposed on steroids * Continue to monitor Current Visit: Yes Status: Acute Code(s): E11.65 - TYPE 2 DIABETES MELLITUS WITH HYPERGLYCEMIA SNOMED Code(s): 245031589188441 Plan: Anticipate discharge in 1 day, patient appears pretty comfortable, awaiting consultants recommendations
[2017-08-05 12:13] LABS: Glucose,Whole Blood 241 mg/dL (75-99)
[2017-08-05] MEDS: guaiFENesin 600 MG TABLET.ER PO SCH ×2 (12:53→21:50)
--- NOTE | 2017-08-05 14:06 | P.CNPUL ---
History of Present Illness Consult date: 08/05/17 Reason for consult: dyspnea, chest pain, COPD, pulmonary embolism, abnormal CXR/ CT Chief complaint: Shortness of breath, pulmonary embolism History of present illness: Consult dated 08/05/2017 This is an 87-year-old female who presented to the emergency department with complaints of chest congestion cough difficulty breathing. Her cough is somewhat productive. She also some chest discomfort. Blood pressure was also elevated. She was evaluated by Dr. Chon Hale in the emergency room. The patient apparently was discovered to have pulmonary embolism. She small clots noted in the left lower lobe. She is feeling a bit better. Her cough is much improved. Denies any chest discomfort at this time. We did have a chance to evaluate her and talk to her family. Apparently she's had no risk factors for pulmonary embolism. Dopplers of the lower extremities were negative for DVT. I suspect she has an unprovoked clot should be treated for 6 months. She apparently has a history of underlying COPD from tobacco use diabetes mellitus hyperlipidemia DJD stress urinary incontinence gastroesophageal reflux disease multiple surgeries including right knee replacement. She continues to smoke every day. She admits to alcohol occasionally but does not use any illicit drugs. Review of Systems A 12 point review of system is positive for shortness of breath chest congestion coughing chest discomfort. She was initially coughing up phlegm not now. Her cough is actually improved now. Past Medical History Past Medical History: COPD, Diabetes Mellitus, Hyperlipidemia, Osteoarthritis ( OA), Pulmonary Embolus (PE) Additional Past Medical History / Comment(s): OCC STRESS INCONT OF URINE, " HEART BURN", PE on this admission History of Any Multi-Drug Resistant Organisms: None Reported Past Surgical History: Adenoidectomy, Joint Replacement, Tonsillectomy Additional Past Surgical History / Comment(s): RT KNEE REPLACMENT Past Anesthesia/Blood Transfusion Reactions: No Reported Reaction Past Psychological History: No Psychological Hx Reported Additional Psychological History / Comment(s): PT IS A . SON NICOLAS LIVES WITH PT IN A RANCH STYLE HOME-HAS A RAMP(THAT USED). PT NEVER DROVE- FAMILY TAKES HER PLACES. USES A WALKER WHEN NEEDED. ALSO HAS A SHOWER CHAIR. Smoking Status: Current every day smoker Past Alcohol Use History: Occasional Additional Past Alcohol Use History / Comment(s): STARTED SMOKING AT AGE 16 SMOKES 1/2 PPD. Past Drug Use History: None Reported - Past Family History Mother Family Medical History: Coronary Artery Disease (CAD), Diabetes Mellitus Additional Family Medical History / Comment(s): PT'S MOM AND 2 AUNTS LIVED TO BE 96 Father Family Medical History: Unable to Obtain Additional Family Medical History / Comment(s): LIVED TO BE IN HIS 90'S Brother(s) Family Medical History: No Reported History Sister(s) Family Medical History: No Reported History Son(s) Family Medical History: No Reported History Medications and Allergies Home Medications Medication Instructions Recorded Confirmed Type LORazepam [Lorazepam] 0.5 mg PO BID PRN 01/01/16 08/05/17 History Rosuvastatin [Crestor] 10 mg PO HS 01/01/16 08/05/17 History Venlafaxine HCl [Effexor XR] 225 mg PO DAILY 06/08/16 08/05/17 History glipiZIDE XL [Glucotrol Xl] 10 mg PO DAILY 08/05/17 08/05/17 History Allergies Allergy/AdvReac Type Severity Reaction Status Date / Time No Known Allergies Allergy Verified 08/05/17 07:44 Physical Exam Osteopathic Statement: *. No significant issues noted on an osteopathic structural exam other than those noted in the History and Physical/Consult. Vitals: Vital Signs Temp Pulse Pulse Resp BP BP Pulse Ox 08/05/17 12:00 98 F 109 H 16 137/65 95 08/05/17 11:43 100 08/05/17 11:30 99 08/05/17 08:35 97.4 F L 94 16 143/56 99 08/05/17 07:24 82 18 167/72 100 08/05/17 06:02 80 18 147/66 99 08/05/17 04:30 80 16 131/62 98 08/05/17 03:23 71 18 145/65 99 08/04/17 23:45 97.8 F 78 18 173/71 96 08/04/17 22:45 59 L 18 171/74 96 08/04/17 21:27 70 18 153/67 100 08/04/17 19:17 78 18 170/77 98 08/04/17 19:14 96 08/04/17 19:00 96 08/04/17 18:31 97.9 F 96 18 187/126 99 Intake and Output 08/04/17 08/05/17 08/05/17 22:59 06:59 14:59 Intake Total 139.827 Output Total 400 Balance 139.827 -400 Intake: Intake, IV Titration 139.827 Amount Heparin Sodium,Porcine/ 139.827 D5w Pmx 25,000 unit In Dextrose/Water 1 500ml. bag @ 18 UNITS/KG/HR 22. 86 mls/hr IV .[id number] [facility] Rx#:[id number] Output: Urine 400 Other: Weight 63.503 kg 63.5 kg No acute distress, oriented 3. Occasional coughing by the patient. HEENT examination is grossly unremarkable. Mucous membranes are moist. No oral lesions. Neck supple. Full range of motion. No adenopathy thyromegaly or neck vein distention. Cardiovascular examination reveals regular rhythm rate. S1-S2 normal. No S3 or S4. No discernible murmur noted. Lungs reveal a few scattered rhonchi. Breath sounds equal bilaterally. No distinct wheezes are noted. No crackles are appreciated. Breath sounds are equal bilaterally. Abdomen soft bowel sounds are heard. No masses or tenderness. Extremities are intact. No cyanosis clubbing or edema. Skin is without rash or lesion. Neurologic examination is brief but nonfocal. Results - Laboratory Findings CBC and BMP: 08/05/17 03:18 08/04/17 19:12 PT/INR, D-dimer PT 11.4 sec (9.0-12.0) 08/05/17 03:18 INR 1.2 (<1.2) H 08/05/17 03:18 D-Dimer 1.69 mg/L FEU (<0.60) H 08/04/17 19:12 Abnormal lab findings: Abnormal Labs 08/04/17 08/04/17 08/05/17 19:12 19:12 03:18 Lymphocytes # INR 1.2 H APTT 113.0 H* D-Dimer 1.69 H Glucose 134 H POC Glucose (mg/dL) 08/05/17 08/05/17 08/05/17 03:18 07:24 12:10 Lymphocytes # 0.9 L INR APTT D-Dimer Glucose POC Glucose (mg/dL) 311 H 241 H - Diagnostic Findings Chest x-ray: image reviewed CT scan - chest: image reviewed U/S of Legs: image reviewed (Labs x-rays and medications are all reviewed.) Assessment and Plan Assessment: Assessment Shortness of breath, primarily secondary to pulmonary embolism COPD exacerbation, mild Diabetes mellitus by history Hyperlipidemia Osteoarthritis Gastroesophageal reflux disease. Stress urinary incontinence Ongoing tobacco use with nicotine addiction No evidence of DVT by Doppler Plan: Plan dated 08/05/2017 The patient will be started on IV heparin. If insurance covers it, she can be switched to a factor X a inhibitor. Alternatively warfarin. This is appears to be an unprovoked clot, the patient should be treated for about 6 months. In addition, meds labs and x-rays all reviewed. She'll need outpatient evaluation by our team. She will need pulmonary function test. Adjustments will be made to her medications at this time. She most certainly has underlying COPD. Time with Patient: Greater than 30
[2017-08-05 17:03] LABS: Glucose,Whole Blood 296 mg/dL (75-99)
[2017-08-05] MEDS ORDERED: LEVOFLOXACIN 500 MG TAB PO SCH (18:00)
[2017-08-05] MEDS ORDERED: ATORVASTATIN 20 MG TAB PO SCH (21:00)
[2017-08-05 21:15] LABS: Glucose,Whole Blood 257 mg/dL (75-99)
[2017-08-05] MEDS: SYMBICORT 160-4.5 MCG INHALER INHALATION SCH (21:22)
[2017-08-05] MEDS: LORazepam 0.5 MG TAB PO PRN (21:52)
[2017-08-06] MEDS: methylPREDNISolone SOD SUCCI 40 MG/ML 1 ML VIAL IV SCH ×2 (00:15→06:25)
[2017-08-06 05:59] LABS: Glucose,Whole Blood 138 mg/dL (75-99)
[2017-08-06] MEDS: INSULIN ASPART 100 UNIT/ML 1 ML 10 ML VIAL SQ SCH (06:25)
[2017-08-06 06:42] LABS: Basophils % (A) 0 %; Eosinophils % (A) 0 %; HCT 37.5 % (34.0-46.0); HGB 12.7 gm/dL (11.4-16.0); Lymphocytes # (A) 1.6 k/uL (1.0-4.8); Lymphocytes % (A) 12 %; MCH 31.9 pg (25.0-35.0); MCHC 33.9 g/dL (31.0-37.0); MCV 94.2 fL (80.0-100.0); Mean Platelet Volume 7.7; Monocytes # (A) 0.8 k/uL (0-1.0); Monocytes % (A) 6 %; Neutrophils % (A) 81 %; Platelet Count 173 k/uL (150-450); RBC 3.97 m/uL (3.80-5.40); RDW 13.3 % (11.5-15.5); WBC 13.5 k/uL (3.8-10.6)
[2017-08-06 07:08] LABS: INR 1.1 (<1.2)
[2017-08-06] MEDS: SYMBICORT 160-4.5 MCG INHALER INHALATION SCH (07:58)
[2017-08-06 09:02] VITALS: BP 126/65; PULSE 97; RESP 20; TEMP 98.2
[2017-08-06] MEDS: guaiFENesin 600 MG TABLET.ER PO SCH (09:03)
[2017-08-06] MEDS: APIXABAN 2.5 MG TABLET PO SCH (09:03)
[2017-08-06] MEDS: ASPIRIN 81 MG PO SCH (09:03)
[2017-08-06] MEDS: VENLAFAXINE HCL ER 75 MG CAP PO SCH (09:03)
[2017-08-06] MEDS: LORazepam 0.5 MG TAB PO PRN (09:10)
--- NOTE | 2017-08-06 10:23 | P.DS ---
Providers Date of admission: 08/04/17 21:39 Expected date of discharge: 08/06/17 Attending physician: Thania Mendieta MD Consults: 08/04/17 22:17 Consult Physician Routine Consulting Provider: Shirley Davidson Consult Reason/Comments: lung mass? Do you want consulting provider notified?: Yes Primary care physician: Elena Pena - Discharge Diagnosis(es) (1) COPD exacerbation Current Visit: Yes Status: Acute (2) Pulmonary embolism Current Visit: Yes Status: Acute (3) Pneumonia Current Visit: Yes Status: Acute (4) Hypertension Current Visit: No Status: Chronic (5) Type 2 diabetes mellitus with hyperglycemia Current Visit: Yes Status: Acute (6) Liver lesion Current Visit: Yes Status: Acute Hospital Course: The patient is a 87-year-old female that presented with dyspnea and was admitted with acute pulmonary embolism, left lower lobe community-acquired pneumonia and a mild COPD exacerbation after her workup with a CTA of the chest had these positive findings. She was placed on supplemental oxygen, started on IV steroids scheduled and when necessary breathing treatments , along with empiric antibiotics IV azithromycin and Rocephin. The patient was placed on IV heparin And after discussion about oral anticoagulation options the patient elected to proceed with eliquis and was subsequently started on that for her unprovoked PE. Bilateral lower extremity Dopplers were negative for any suggestion of DVT. The patient did well with no significant issues in her hospital course. The patient was seen by pulmonology who recommended continuing anticoagulation for at least 6 months due to the patient's unprovoked PE. CT of the chest recommended a repeat CT in 3 months due to an increased risk of developing lung cancer due to the endobronchial plugging. The patient was also noted to have what appeared to be a benign liver cyst that should also be worked up in the outpatient setting. There is also a small hiatal hernia with some irregular soft tissue projecting into the lumen, radiographic suggestions the patient possibly have a EGD. The patient was subsequently discharged home in stable condition with new prescriptions for Levaquin, prednisone, Mucinex and Elquis and was instructed to follow-up with her PCP. The patient is also set up with a follow-up appointment to see GI and pulmonology. This discharge process took approximately 35 minutes Things to BE addressed Follow-up CT of the chest in 3 months Further workup of liver lesion directed by GI Evaluation for EGD based on CT findings by GI Patient Condition at Discharge: Good Plan - Discharge Summary Discharge Rx Participant: No New Discharge Prescriptions: New Apixaban [Eliquis] 2.5 mg PO BID #60 tablet guaiFENesin [Mucinex] 1,200 mg PO Q12HR #20 tablet.er Levofloxacin [Levaquin] 500 mg PO Q24H #6 tab predniSONE 40 mg PO DAILY #4 tab Continue Rosuvastatin [Crestor] 10 mg PO HS LORazepam [Lorazepam] 0.5 mg PO BID PRN PRN Reason: Anxiety Venlafaxine HCl [Effexor XR] 225 mg PO DAILY glipiZIDE XL [Glucotrol XL] 10 mg PO DAILY Discharge Medication List LORazepam [Lorazepam] 0.5 mg PO BID PRN 01/01/16 [History] Rosuvastatin [Crestor] 10 mg PO HS 01/01/16 [History] Venlafaxine HCl [Effexor XR] 225 mg PO DAILY 06/08/16 [History] glipiZIDE XL [Glucotrol XL] 10 mg PO DAILY 08/05/17 [History] Apixaban [Eliquis] 2.5 mg PO BID #60 tablet 08/06/17 [Rx] Levofloxacin [Levaquin] 500 mg PO Q24H #6 tab 08/06/17 [Rx] guaiFENesin [Mucinex] 1,200 mg PO Q12HR #20 tablet.er 08/06/17 [Rx] predniSONE 40 mg PO DAILY #4 tab 08/06/17 [Rx] Follow up Appointment(s)/Referral(s): Elena Pena MD [Primary Care Provider] - 08/07/17 4:15 pm Brendon Graves DO [Doctor of Osteopathic Medicine] - 08/22/17 2:15 pm Patient Instructions/Handouts: Pulmonary Embolism (DC), COPD (Chronic Obstructive Pulmonary Disease) (DC) Discharge Disposition: HOME SELF-CARE
--- NOTE | 2017-08-06 11:33 | P.PN ---
Subjective Progress Note Date: 08/06/17 Principal diagnosis: Shortness of breath secondary to pulmonary embolism, mild exacerbation of COPD Consult dated 08/05/2017 This is an 87-year-old female who presented to the emergency department with complaints of chest congestion cough difficulty breathing. Her cough is somewhat productive. She also some chest discomfort. Blood pressure was also elevated. She was evaluated by Dr. Chon Hale in the emergency room. The patient apparently was discovered to have pulmonary embolism. She small clots noted in the left lower lobe. She is feeling a bit better. Her cough is much improved. Denies any chest discomfort at this time. We did have a chance to evaluate her and talk to her family. Apparently she's had no risk factors for pulmonary embolism. Dopplers of the lower extremities were negative for DVT. I suspect she has an unprovoked clot should be treated for 6 months. She apparently has a history of underlying COPD from tobacco use diabetes mellitus hyperlipidemia DJD stress urinary incontinence gastroesophageal reflux disease multiple surgeries including right knee replacement. She continues to smoke every day. She admits to alcohol occasionally but does not use any illicit drugs. On 08/06/2017 patient seen in follow-up. Doing well, denies any acute distress , lung sounds are clear to auscultation, no wheezes, no rhonchi, no worsening dyspnea. Denies any chest pain, denies any pleuritic discomfort Remains on room air, with pulse ox of 95%, hemodynamically stable, she is afebrile, respirations are even and nonlabored. She has been approved for oral anticoagulation in the form of Eliquis, and he has been started today, heparin drip has been discontinued. Patient has been treated with nebulized bronchodilators, Symbicort, and empiric antibiotics in the form of Levaquin, and his improved. Today's blood work shows WBC of 13.5, this may be related to IV steroids, patient has no fever no chills. From pulmonary standpoint patient is stable to discharge home today, on prednisone taper, outpatient course of Levaquin, and Eliquis. She will need follow-up appointment Dr. Graves in the office within one week. Objective - Vital Signs Vital signs: Vital Signs Temp 98.2 F 08/06/17 09:00 Pulse 97 08/06/17 09:00 Resp 20 05/22/18 09:00 BP 126/65 08/06/17 09:00 Pulse Ox 95 08/06/17 09:00 Intake & Output 08/05/17 08/06/17 08/06/17 18:59 06:59 18:59 Intake Total 236 Output Total 400 Balance -164 Weight 63.5 kg 63.6 kg Intake: Oral 236 Output: Urine 400 Other: Voiding Method Toilet Toilet Toilet # Voids 1 1 1 - Exam No acute distress, oriented 3. Occasional coughing by the patient. HEENT examination is grossly unremarkable. Mucous membranes are moist. No oral lesions. Neck supple. Full range of motion. No adenopathy thyromegaly or neck vein distention. Cardiovascular examination reveals regular rhythm rate. S1-S2 normal. No S3 or S4. No discernible murmur noted. Lungs sounds are clear to auscultation. Breath sounds equal bilaterally. No distinct wheezes are noted. No crackles are appreciated. Breath sounds are equal bilaterally. Abdomen soft bowel sounds are heard. No masses or tenderness. Extremities are intact. No cyanosis clubbing or edema. Skin is without rash or lesion. Neurologic examination is brief but nonfocal. - Labs CBC & Chem 7: 08/06/17 05:48 08/04/17 19:12 Labs: Abnormal Lab Results - Last 24 Hours (Table) 08/05/17 08/05/17 08/05/17 Range/Units 12:10 16:59 20:55 WBC (3.8-10.6) k/uL Neutrophils # (1.3-7.7) k/uL POC Glucose (mg/dL) 241 H 296 H 257 H (75-99) mg/dL 08/06/17 08/06/17 Range/Units 05:48 05:57 WBC 13.5 H (3.8-10.6) k/uL Neutrophils # 11.0 H (1.3-7.7) k/uL POC Glucose (mg/dL) 138 H (75-99) mg/dL Assessment and Plan Plan: Assessment: Shortness of breath, primarily secondary to pulmonary embolism COPD exacerbation, mild Diabetes mellitus by history Hyperlipidemia Osteoarthritis Gastroesophageal reflux disease. Stress urinary incontinence Ongoing tobacco use with nicotine addiction No evidence of DVT by Doppler Plan: Patient has been approved for Eliquis, and this has been started today, heparin drip has been discontinued. Patient denies any chest pain, denies any worsening dyspnea, denies any pleuritic discomfort. She is on room air, maintaining stable oxygenation. Patient was informed that she will need to be treated with oral anticoagulants for a period of at least 6 months for an unprovoked pulmonary embolism. Patient has responded to IV steroids, bronchodilators and empiric antibiotics. She will need follow-up appointment in the pulmonary office, Dr. Graves in one week. I performed a history & physical examination of the patient and discussed their management with my nurse practitioner, Funmi Aleman. I reviewed the nurse practitioner's note and agree with the documented findings and plan of care. Lung sounds are clear. The findings and the impression was discussed with the patient. I attest to the documentation by the nurse practitioner. Time with Patient: Less than 30
[2017-08-06] MEDS ORDERED: LEVOFLOXACIN 250 MG TAB PO SCH (18:00)
== END 2017-08-06 13:20 | disposition home health service (06) | DRG 175 ==
LOC: EC 18:27 → 6SEL 21:39
PROVIDERS: ADMIT Internal Medicine; ATTEND Internal Medicine
DX: I26.99 Other pulmonary embolism without acute cor pulmonale (principal); J18.9 Pneumonia, unspecified organism; J44.0 Chronic obstructive pulmonary disease with (acute) lower respiratory infection; J44.1 Chronic obstructive pulmonary disease with (acute) exacerbation; E11.65 Type 2 diabetes mellitus with hyperglycemia; J98.09 Other diseases of bronchus, not elsewhere classified; K76.89 Other specified diseases of liver; F41.9 Anxiety disorder, unspecified; K21.9 Gastro-esophageal reflux disease without esophagitis; I10 Essential (primary) hypertension; E78.5 Hyperlipidemia, unspecified; M19.91 Primary osteoarthritis, unspecified site; N39.3 Stress incontinence (female) (male); K44.9 Diaphragmatic hernia without obstruction or gangrene; F17.210 Nicotine dependence, cigarettes, uncomplicated; Z71.6 Tobacco abuse counseling; Z79.84 Long term (current) use of oral hypoglycemic drugs; Z79.82 Long term (current) use of aspirin; Z79.899 Other long term (current) drug therapy; Z96.651 Presence of right artificial knee joint; Z82.49 Family history of ischemic heart disease and other diseases of the circulatory system; Z83.3 Family history of diabetes mellitus
CPT/HCPCS: 36415; 71046; 71275; 80053; 82550; 82553; 83735; 83880; 84100; 84484; 85025; 85379; 85610; 85730; 93005; 93970; 94640; 96361; 96365; 96366; 96375; 96376; 99285

== ENCOUNTER → 2017-08-29 | Outpatient (CLI) | payer MEDICARE ==
--- NOTE | 2017-08-29 17:00 | CT ---
EXAMINATION TYPE: CT angio chest DATE OF EXAM: 08/29/2017 COMPARISON: 09/07/2011 and 08/04/2017 HISTORY: Follow-up pulmonary embolism. CT DLP: 192.7 mGycm. Automated Exposure Control for Dose Reduction was Utilized. CONTRAST: CTA scan of the thorax is performed with IV Contrast, patient injected with 80 mL of Isovue 370, pulm onary embolism protocol. MIP Images are created on CT scanner and reviewed. FINDINGS: LUNGS: The previously seen mucous plugging within the left lower lobe anterior bronchi has resolved i n the interim as no longer present. The lungs are grossly clear, there is no concerning parenchymal m ass or nodule identified. Multifocal left basilar minimal pleural thickening is unchanged from the p rior. Minimal biapical pleural parenchymal thickening is also noted. There is no pleural effusion or pneumothorax seen. The tracheobronchial tree is patent. MEDIASTINUM: There is satisfactory enhancement of the pulmonary artery and its branches, there is no CT evidence for pulmonary embolism. There has been reabsorption of the previously seen segmental and subsegmental small left basilar pulmonary emboli in comparison to exam of 08/04/2017. There are no gre ater than 1 cm hilar or mediastinal lymph nodes. No cardiomegaly or pericardial effusion is seen. C oronary calcifications are again evident, moderate to severe. Ascending thoracic aorta is within norm al limits of size, as is the main pulmonary artery measuring 2.8 cm. OTHER: There are similar appearing elongation and posterior extension of the left thyroid gland and/o r thyroid nodule in comparison to exam of 2012, therefore presumably benign. There is redemonstration of a small hiatal hernia. There is stable size of the proximally 4.3 cm right hepatic dome lesion al though this does not fit criteria of a simple cyst. Again further characterization with three-phase e nhanced CT could be performed. Mild multilevel degenerative changes of the thoracic spine are seen. IMPRESSION: 1. Resolution the previously seen small left basilar subsegmental and segmental emboli. 2. Redemonstration of a hepatic lesion measuring 4.3 cm that does not fit criteria for simple cyst an d has enlarged from 2012. Full characterization with dynamic three-phase enhanced CT abdomen is recom mended.
== END | disposition home or self-care (01) ==
LOC: RADCTMAIN 15:44
PROVIDERS: ATTEND Internal Medicine Critical Care Medicine
DX: I26.99 Other pulmonary embolism without acute cor pulmonale (principal)
CPT/HCPCS: 82565; 84520; 71275; 36415; Q9967

== ENCOUNTER → 2017-09-12 | Outpatient (CLI) | payer MEDICARE ==
--- NOTE | 2017-09-13 07:25 | CT ---
EXAMINATION TYPE: CT abdomen wo/w con DATE OF EXAM: 09/12/2017 HISTORY: Hepatic lesion, recent abnormal CT. CT DLP: 1528mGycm Automated Exposure Control for Dose Reduction was Utilized. CONTRAST: CT scan of the abdomen is performed without and with IV Contrast, patient injected with 80 mL of Isov ue 300. Liver protocol is utilized. COMPARISON: CTA chest August 29, 2017 and older exams back to September 07, 2011. FINDINGS: LUNG BASES: Calcifications at level of mitral valve are redemonstrated. LIVER/GB: Correlating with prior CTs in the right hepatic dome centrally there is 4.0 x 3.9 cm low de nse lesion on noncontrast CT. This lesion shows interval enlargement from 2012. Dynamic postcontrast imaging shows peripheral nodular enhancement with progressive centripetal filling, imaging characteri stics consistent with hemangioma. There is a subcentimeter area of irregular enhancement blushing ser ies 5 image 32 left hepatic lobe medial segment along interlobar fissure, this area appears isodense on other images favoring transient hepatic attenuation difference. PANCREAS: No significant abnormality is seen. SPLEEN: No significant abnormality is seen. ADRENALS: No significant abnormality is seen. KIDNEYS: There is 4 mm calculus mid pole level left kidney axial image 33. There is symmetric cortica l medullary uptake and excretion from both kidneys. There is 9 mm simple appearing cyst laterally rig ht kidney lower pole level series 11 image 58. There is simple appearing 1.4 cm cyst posteriorly mid pole level left kidney near calculus axial image 50. There is exophytic 1.5 cm simple appearing cyst upper pole level left kidney. BOWEL: No significant abnormality is seen. LYMPH NODES: No greater than 1cm abdominal lymph nodes are appreciated. OSSEOUS STRUCTURES: There is some multilevel spurring in the thoracic spine. There is moderate to sev ere disc space narrowing with mild to moderate spurring left L4-L5 level. OTHER: There is partial visualization of moderate size fat-containing ventral wall possible umbilical hernia on last axial images. There is fairly moderate to severe calcified plaque of aorta. IMPRESSION: Enlarging 4.0 cm liver lesion has dynamic imaging characteristics consistent with benign hemangioma.
== END | disposition home or self-care (01) ==
LOC: RADCTMAIN 15:01
PROVIDERS: ATTEND Family Medicine
DX: R16.0 Hepatomegaly, not elsewhere classified (principal); K76.89 Other specified diseases of liver
CPT/HCPCS: 82565; 84520; 74170; 36415; Q9967

== ENCOUNTER 2019-01-25 15:05 | Emergency (ER) | payer MEDICARE ==
[2019-01-25 15:15] VITALS: RESP 18
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
--- NOTE | 2019-01-25 16:24 | XR ---
EXAMINATION TYPE: XR ankle complete LT DATE OF EXAM: 01/25/2019 COMPARISON: None HISTORY: Pain lateral malleolus TECHNIQUE: Three-view left ankle FINDINGS: There is mild soft tissue swelling inferior to the lateral malleolus. The ankle mortise is intact. No acute fractures or dislocations are evident. Remaining soft tissues are normal. Large plan tar calcaneal heel spur is present. IMPRESSION: 1. Mild soft tissue swelling inferior to the lateral malleolus. 2. No acute osseous abnormality. 3. Plantar calcaneal heel spur
--- NOTE | 2019-01-25 16:35 | XR ---
EXAMINATION TYPE: XR foot complete LT DATE OF EXAM: 01/25/2019 COMPARISON: None HISTORY: Left ankle pain TECHNIQUE: Three-view left foot FINDINGS: Large plantar calcaneal heel spur is present No acute fractures or dislocations are evident. Joint spaces are preserved. IMPRESSION: 1. No acute osseous abnormality. 2. Plantar calcaneal heel spur. 3. Follow-up exams can be performed 7-10 days from acute trauma for continued pain.
[2019-01-25 17:01] VITALS: BP 122/84; PULSE 74; TEMP 97.8
== END 2019-01-25 17:00 | disposition home or self-care (01) ==
LOC: EC 15:05
DX: M77.32 Calcaneal spur, left foot (principal); R60.0 Localized edema; M25.572 Pain in left ankle and joints of left foot; E78.5 Hyperlipidemia, unspecified; E11.9 Type 2 diabetes mellitus without complications; M19.90 Unspecified osteoarthritis, unspecified site; F17.200 Nicotine dependence, unspecified, uncomplicated; Z79.84 Long term (current) use of oral hypoglycemic drugs; Z79.899 Other long term (current) drug therapy; Z86.711 Personal history of pulmonary embolism; Z53.20 Procedure and treatment not carried out because of patient's decision for unspecified reasons; Z96.651 Presence of right artificial knee joint
CPT/HCPCS: 99283

== ENCOUNTER 2019-03-04 11:55 | Emergency (ER) | payer MEDICARE ==
[2019-03-04] MEDS ORDERED: SODIUM CHLORIDE 0.9% 1,000 ML IV STA (13:49)
[2019-03-04 14:39] LABS: Appearance,Urine Clear (Clear); Bilirubin,Urine Negative (Negative); Blood,Urine Small (Negative); Color,Urine Yellow; Glucose,Urine (UA) Negative (Negative); Ketones,Urine Negative (Negative); Leukocyte Esterase,Urine Trace (Negative); Mucus,Urine Rare /hpf; Nitrite,Urine Negative (Negative); PH, Urine 6.5 (5.0-8.0); Protein,Urine Negative (Negative); RBC,Urine 32 /hpf (0-5); Specific Gravity,Urine 1.012 (1.001-1.035); Squamous Epithelial Cell,Urine <1 /hpf (0-4); Urobilinogen,Urine <2.0 mg/dL (<2.0); WBC,Urine 2 /hpf (0-5)
[2019-03-04 14:40] LABS: Basophils % (A) 0 %; Eosinophils # (A) 0.1 k/uL (0-0.7); Eosinophils % (A) 1 %; HCT 41.6 % (34.0-46.0); HGB 14.2 gm/dL (11.4-16.0); Lymphocytes # (A) 1.7 k/uL (1.0-4.8); Lymphocytes % (A) 25 %; MCH 32.4 pg (25.0-35.0); MCHC 34.2 g/dL (31.0-37.0); Mean Platelet Volume 9.4; Monocytes # (A) 0.4 k/uL (0-1.0); Monocytes % (A) 6 %; Neutrophils # (A) 4.3 k/uL (1.3-7.7); Neutrophils % (A) 66 %; Platelet Count 188 k/uL (150-450); RBC 4.38 m/uL (3.80-5.40); RDW 12.6 % (11.5-15.5); WBC 6.6 k/uL (3.8-10.6)
[2019-03-04 14:46] LABS: Albumin 4.1 g/dL (3.5-5.0); Calcium 9.8 mg/dL (8.4-10.2); Magnesium 2.1 mg/dL (1.6-2.3); Total Bilirubin 0.7 mg/dL (0.2-1.3)
[2019-03-04 14:51] LABS: Partial Thromboplastin Time 23.2 sec (22.0-30.0); Prothrombin Time 10.4 sec (9.0-12.0)
--- NOTE | 2019-03-04 14:51 | XR ---
EXAMINATION TYPE: XR chest 2V DATE OF EXAM: 03/04/2019 COMPARISON: Chest x-ray August 04, 2017. CT chest August 29, 2017. HISTORY: Increased weakness. TECHNIQUE: Frontal and lateral views of the chest are obtained. FINDINGS: There is chronic parenchymal change bilaterally without suspicious new focal air space [place], pleural effusion, or pneumothorax seen. The cardiac silhouette size is enlarged with atheroscl erotic aorta. The osseous structures remain demineralized. IMPRESSION: Cardiomegaly and chronic parenchymal changes without acute pulmonary process.
[2019-03-04 16:06] VITALS: PULSE 89; RESP 18
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
[2019-03-04 16:21] VITALS: BP 145/73
[2019-03-04 16:38] VITALS: TEMP 98.1
== END 2019-03-04 16:20 | disposition home or self-care (01) ==
LOC: EC 11:55
DX: R31.9 Hematuria, unspecified (principal); R91.8 Other nonspecific abnormal finding of lung field; R53.1 Weakness; E11.9 Type 2 diabetes mellitus without complications; E78.5 Hyperlipidemia, unspecified; M19.90 Unspecified osteoarthritis, unspecified site; F32.9 Major depressive disorder, single episode, unspecified; F41.9 Anxiety disorder, unspecified; F17.200 Nicotine dependence, unspecified, uncomplicated; Z79.84 Long term (current) use of oral hypoglycemic drugs; Z79.899 Other long term (current) drug therapy; Z96.651 Presence of right artificial knee joint
CPT/HCPCS: 36415; 71046; 80053; 81001; 83605; 83735; 84443; 84484; 85025; 85610; 85730; 93005; 96360; 99285

== ENCOUNTER 2019-03-17 16:57 | Emergency (ER) | payer MEDICARE ==
[2019-03-17 17:04] VITALS: RESP 18; TEMP 98.3
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
[2019-03-17 17:33] LABS: Basophils % (A) 0 %; Eosinophils # (A) 0.1 k/uL (0-0.7); Eosinophils % (A) 1 %; HCT 39.7 % (34.0-46.0); HGB 13.3 gm/dL (11.4-16.0); Lymphocytes # (A) 1.2 k/uL (1.0-4.8); Lymphocytes % (A) 17 %; MCH 31.6 pg (25.0-35.0); MCHC 33.5 g/dL (31.0-37.0); MCV 94.2 fL (80.0-100.0); Mean Platelet Volume 8.4; Monocytes # (A) 0.4 k/uL (0-1.0); Monocytes % (A) 6 %; Neutrophils # (A) 5.2 k/uL (1.3-7.7); Neutrophils % (A) 74 %; Platelet Count 178 k/uL (150-450); RBC 4.21 m/uL (3.80-5.40); RDW 12.6 % (11.5-15.5)
--- NOTE | 2019-03-17 17:39 | XR ---
EXAMINATION TYPE: XR KUB DATE OF EXAM: 03/17/2019 COMPARISON: 03/25/2017 HISTORY: Abdominal pain TECHNIQUE: 2 views upright FINDINGS: There is no sign of intestinal obstruction or pneumoperitoneum. Fecal pattern is normal. Th ere is mild lumbar dextroscoliosis. There are no pathologic calcifications over the kidneys. Lung bas es are clear. There is no evidence of a mass. There is no sign of pleural effusion. IMPRESSION: Nonacute abdomen. No change.
[2019-03-17 17:44] LABS: Albumin 3.9 g/dL (3.5-5.0); Calcium 9.3 mg/dL (8.4-10.2); Potassium 4.3 mmol/L (3.5-5.1); Total Bilirubin 0.5 mg/dL (0.2-1.3); Total Protein 6.6 g/dL (6.3-8.2)
[2019-03-17 17:54] LABS: Partial Thromboplastin Time 23.5 sec (22.0-30.0); Prothrombin Time 10.5 sec (9.0-12.0)
[2019-03-17 17:54] LABS: Appearance,Urine Clear (Clear); Bilirubin,Urine Negative (Negative); Blood,Urine Moderate (Negative); Color,Urine Yellow; Glucose,Urine (UA) 3+ (Negative); Ketones,Urine Negative (Negative); Leukocyte Esterase,Urine Negative (Negative); Mucus,Urine Rare /hpf; Nitrite,Urine Negative (Negative); PH, Urine 5.5 (5.0-8.0); Protein,Urine Negative (Negative); RBC,Urine 41 /hpf (0-5); Squamous Epithelial Cell,Urine <1 /hpf (0-4); Urobilinogen,Urine <2.0 mg/dL (<2.0); WBC,Urine 3 /hpf (0-5)
[2019-03-17] MEDS ORDERED: SODIUM CHLORIDE 0.9% 500 ML 500 ML IV ONE (18:18)
[2019-03-17 18:55] VITALS: BP 124/75; PULSE 78
--- NOTE | 2019-03-17 19:19 | CT ---
EXAMINATION TYPE: CT abdomen pelvis wo con DATE OF EXAM: 03/17/2019 COMPARISON: 09/12/2017 HISTORY: LLQ pain, hematuria. CT DLP: 456.3 mGycm Automated exposure control for dose reduction was used. Multiple axial sections were obtained from the diaphragm to the floor the pelvis with no contrast. Lung bases are clear. There is no pleural effusion. There is no pericardial effusion. There is dense mitral annulus calcification. Liver and spleen appear intact. Bile ducts are not dilated. Stomach is intact. There is small hiatal hernia. There is no evidence of pancreatic mass. Gallbladder appears normal. There is no adrenal mass. There is left-sided hydronephrosis and hydroureter. There is a 4 mm calculu s at the left ureteral vesicle junction. Bladder distends smoothly. There is no retroperitoneal adeno vanesa. There is exophytic 1.5 cm cyst upper pole left kidney. No other renal calculus seen. Abdominal aorta is atheromatous. There are sigmoid diverticula without evidence of diverticulitis. There is no inguinal hernia. There is no free fluid in the pelvis. There are some spondylotic changes in the lumbar spine. There is no compression fracture. The appendix appe ars normal. There is no sign of a bowel obstruction. There is no free air. There is no ascites. There is no bowel obstruction. The bony pelvis appears int act. IMPRESSION: There is small obstructing calculus at the left ureterovesical junction with hydronephrosis and hydro ureter. Atherosclerotic vascular disease.
[2019-03-17] MEDS ORDERED: HYDROcodone/APAP 5-325MG 1 EACH TAB PO STA (19:39)
== END 2019-03-17 19:50 | disposition home or self-care (01) ==
LOC: EC 16:57
DX: N13.2 Hydronephrosis with renal and ureteral calculous obstruction (principal); N17.9 Acute kidney failure, unspecified; R14.0 Abdominal distension (gaseous); R19.5 Other fecal abnormalities; E11.9 Type 2 diabetes mellitus without complications; E78.5 Hyperlipidemia, unspecified; M19.90 Unspecified osteoarthritis, unspecified site; F32.9 Major depressive disorder, single episode, unspecified; F41.9 Anxiety disorder, unspecified; F17.200 Nicotine dependence, unspecified, uncomplicated; Z79.84 Long term (current) use of oral hypoglycemic drugs; Z79.899 Other long term (current) drug therapy; Z96.651 Presence of right artificial knee joint
CPT/HCPCS: 36415; 74018; 74176; 80053; 81001; 82150; 83605; 83690; 85025; 85610; 85730; 99285